=== PATIENT | male | born 1970 | race Caucasian/White ===

== ENCOUNTER 2016-03-01 14:28 | Emergency (ER) | payer OTHER, SELFPAY ==
[~2016-03-01 14:28] MED LIST: IBUP600T OR; LISI10TA2 PO; LISI10TA4 OR; OMEP40CA2 PO; PROP20TA2 OR; VICO5TAB OR
[2016-03-01] MEDS ORDERED: ONDANSETRON 4 MG ORAL DISINTEGRATING TAB (S0181) As Ordered ONE (15:34)
[2016-03-01 16:48] LABS: CALCIUM LEVEL 8.8 MG/DL (8.5-10.1); CREATININE FOR GFR 1.52 MG/DL (0.70-1.30); GLOMERULAR FILTRATION RATE 52.8 (>60); POTASSIUM SERUM 3.9 MEQ/L (3.5-5.1)
--- NOTE | 2016-03-01 17:12 | REP ---
Clinical: Left lower extremity pain and swelling . Technique: Noble scale and color Doppler evaluation using linear high frequency transducer. Findings: Ultrasound examination of the left lower extremity deep venous structures from the common femoral vein to the popliteal vein demonstrates normal compressibility flow and wave patterns in response to respiration and augmentation. There is no evidence for deep venous thrombosis. 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 Impression: No evidence for deep venous thrombosis. Marx's cyst. Signed by James Duenas MD 03/01/2016 05:04 P
--- NOTE | 2016-03-01 18:28 | EDDOCDS ---
Physician Documentation [facility] Name: Jack Copeland Age: 46 yrs Sex: Male : 1970 Arrival Date: 03/01/2016 Time: 14:28 Bed 8 Private MD: Yang Shaffer M.D. Disposition: 03/01/16 18:11 Discharged to Home/Self Care. Impression: Nausea and vomiting. - Condition is Stable. - Discharge Instructions: Nausea and Vomiting. - Medication Reconciliation, Local Pharmacy Hours form. - Follow up: Yang Shaffer; When: Call to arrange an appointment; Reason: Recheck today's complaints. - Problem is new. - Symptoms have improved. - Notes: You were evaluated in the emergency department for nausea and vomiting. You were given some Zofran in the ED which appeared to alleviate your symptoms. Your blood pressure did drop a little while in the ED so some fluids were given via your IV. Your blood pressure did improve somewhat. Fluids were administered by mouth. Please follow-up with Yang Shaffer at your soonest convenience. Historical: - Allergies: Bactrim (Hives, Rash, Upset stomach); - Home Meds: 1. lisinopril-hydrochlorothiazide 20-12.5 mg oral tab 1 tab twice a day 2. Cipro 500 mg Oral tab 1 tab every 12 hours just started today for prostaitis - PMHx: Hypertension; - PSHx: Appendectomy; right ankle; - Social history: Smoking status: Patient states former smoker of tobacco. No barriers to communication noted, The patient speaks fluent Hungarian, Speaks appropriately for age. - Family history: Not pertinent. - : The pt / caregiver states he / she is not on anticoagulants. Home medication list is obtained from the patient. - Exposure Risk Screening:: None identified. Vital Signs: 03/01 14:29 BP 133 / 87; Pulse 123; Resp 18 S; Pulse Ox 98% on R/A; Weight 149.69 kg / 330.01 lbs dd6 (R); Height 6 ft. 5 in. (195.58 cm) (R); 16:11 BP 92 / 54 (auto/); po 16:12 Pulse 80 MON; Resp 18; Temp 97.5(O); Pulse Ox 93% on R/A; Pain 0/10; po 16:29 BP 102 / 57 (auto/); po 16:29 Pulse 84 MON; Resp 14; Pulse Ox 96% on R/A; Pain 0/10; po 17:29 BP 118 / 75 (auto/); po 17:29 Pulse 82 MON; Resp 16; Temp 97.9(O); Pulse Ox 92% on R/A; Pain 0/10; po 18:18 BP 121 / 78; Pulse 78 MON; Resp 14; Temp 98.1(O); Pulse Ox 92% on R/A; Pain 0/10; po 14:29 Body Mass Index 39.13 (149.69 kg, 195.58 cm) dd6 MDM: 15:29 Ondansetron ODT Oral Disintegrating Tablet 4 mg PO once ordered. jo4 15:59 US Lower Extremity R/O DVT Ordered. EDMS 16:13 NS 0.9% 1000 ml IV at bolus once ordered. jo4 16:13 IV Saline Lock ordered. jo4 16:14 BMP Ordered. EDMS 17:18 BMP Reviewed. sd1 17:23 Financial registration complete. zo 17:[facility] Agreement was scanned into [employer] and attached to record. zo 17:33 Fluid Challenge ordered. jo4 Administered Medications: 15:36 Drug: Ondansetron ODT 4 mg [ondansetron 4 mg disintegrating tablet (1 tabs)] Route: PO; po 16:23 Follow up: Response: Nausea is resolved po 16:22 Drug: NS 0.9% 1000 ml [sodium chloride 0.9 % intravenous solution] Route: IV; Rate: rs3 bolus; Site: right antecubital; 17:50 Follow up: IV Status: Completed infusion; IV Intake: 1000ml po Signatures: Dispatcher [employer] EDMS Eliza Amaro MD MD sd1 Germain Amaral RN RN Fran Hemphill RN RN Nika Vasquez Jane, DO DO jo4 Cherry Hess RN rs3 The chart was reviewed and I authenticate all verbal orders and agree with the evaluation and treatment provided.Attachments: 17:25 [facility] Payment Agreement zo MTDD
--- NOTE | 2016-03-01 18:28 | EDDOCDS ---
Nurse's Notes [facility] Name: Jack Copeland Age: 46 yrs Sex: Male : 1970 Arrival Date: 03/01/2016 Time: 14:28 Bed 8 Private MD: Yang Shaffer M.D. Diagnosis: Nausea and vomiting Presentation: 03/01 14:37 Presenting complaint: Patient states: took a Bactrim DS by accident about 3 hrs ago - bcj has been having increasing diff breath - chest feels tight/throat feels full. + n/v several times since incident. denies itching. tongue / face not swollen. + light red rash on trunk. Onset: The symptoms/episode began/occurred acutely, 3 hour(s) ago. The patient has a history of a previous allergic reaction. The previous reaction involved shortness of breath. Anaphylaxis evaluation, the patient reports or I have noted the following symptoms which indicate a significant risk of anaphylaxis: lump in the throat which may suggest laryngeal edema shortness of breath. Adult Sepsis Screening: The patient does not have new or worsening altered mentation. Patient's respiratory rate is less than 22. Systolic blood pressure is greater than 100. Patient has a qSOFA score of 0- Negative Sepsis Screen. Suicide/Homicide risk assessment- the patient denies having any suicidal and/or homicidal ideations and does not present with any other emotional, behavioral or mental health complaints. Status: Patient is not a customer service teller or dependent. Transition of care: patient was not received from another setting of care. 14:37 Acuity: JOSEPHINE Level 3 [facility] 14:37 Method Of Arrival: Walkin/Carried/[facility] Triage Assessment: 14:42 General: Appears uncomfortable, Behavior is cooperative. Pain: Location: chest Pain [facility] currently is 4 out of 10 on a pain scale. HIV screening NA for this visit Offered previously. Respiratory: Airway is patent Respiratory effort is even, unlabored, Respiratory pattern is regular, Breath sounds are clear bilaterally. Reports shortness of breath. Derm: Skin is pink, warm & dry. Historical: - Allergies: Bactrim (Hives, Rash, Upset stomach); - Home Meds: 1. lisinopril-hydrochlorothiazide 20-12.5 mg oral tab 1 tab twice a day 2. Cipro 500 mg Oral tab 1 tab every 12 hours just started today for prostaitis - PMHx: Hypertension; - PSHx: Appendectomy; right ankle; - Social history: Smoking status: Patient states former smoker of tobacco. No barriers to communication noted, The patient speaks fluent Kinyarwanda, Speaks appropriately for age. - Family history: Not pertinent. - : The pt / caregiver states he / she is not on anticoagulants. Home medication list is obtained from the patient. - Exposure Risk Screening:: None identified. Screenin:13 Screening information is obtained from the patient. Fall risk: No risks identified. po Assistance ADL's: requires no assistance with activities of daily living. Abuse/DV Screen: The patient / caregiver reports he/she is: not in a situation that causes fear, pain or injury. Nutritional screening: No deficits noted. Advance Directives: Currently, there is no health care proxy. There is no active DNR order. Further advance directive information is declined. home support is adequate. Assessment: 15:13 General: Appears in no apparent distress, comfortable, Behavior is appropriate for age, po cooperative, pleasant. Pain: Denies pain. Neurological: Level of Consciousness is awake, alert, Oriented to person, place, time. EENT: Reports feeling of lump in throat. Respiratory: Airway is patent Respiratory effort is even, unlabored, Breath sounds are clear bilaterally. GI: Abdomen is non- distended obese, Bowel sounds present X 4 quads. Abd is soft and non tender X 4 quads. Reports diarrhea, nausea, vomiting, since 1 hour ago. Derm: Skin is intact, is healthy with good turgor, Skin is pink, warm & dry. no rash or hives noted. 16:23 Adult Sepsis Screening: The patient does not have new or worsening altered mentation. po Patient's respiratory rate is less than 22. Systolic blood pressure is less than or equal to 100 (1 point). Patient has a qSOFA score of 1- Negative Sepsis Screen. General: Appears in no apparent distress, comfortable, Behavior is appropriate for age, cooperative, pleasant. General: Appears in no apparent distress, comfortable, Behavior is appropriate for age, cooperative. Pain: Denies pain. Neurological: Level of Consciousness is awake, alert, Oriented to person, place, time. Respiratory: Airway is patent Respiratory effort is even, unlabored. GI: Reports diarrhea, Denies nausea. 16:24 Derm: Skin is intact, is healthy with good turgor, Skin is pink, warm & dry. po 17:30 General: Appears in no apparent distress, comfortable, Behavior is appropriate for age, po cooperative, pleasant. Pain: Denies pain. Neurological: Level of Consciousness is awake, alert, Oriented to person, place, time. Respiratory: Airway is patent Respiratory effort is even, unlabored, Breath sounds are clear bilaterally. GI: Denies nausea. Derm: Skin is pink, warm & dry. Musculoskeletal: states left calf pain only when turning over and laying on left side at night. Denies any pain with ambulation. 18:01 General: tolerated po fluids, denies nausea. po 18:25 General: Appears in no apparent distress, comfortable, Behavior is appropriate for age, po cooperative, pleasant. Pain: Denies pain. Neurological: No deficits noted. EENT: Oral mucosa is moist. Respiratory: No deficits noted. GI: Abdomen is non- distended obese, Bowel sounds present X 4 quads. Abd is soft and non tender X 4 quads. Denies nausea. Derm: Skin is intact, is healthy with good turgor, Skin is pink, warm & dry. Vital Signs: 14:29 BP 133 / 87; Pulse 123; Resp 18 S; Pulse Ox 98% on R/A; Weight 149.69 kg (R); Height 6 dd6 ft. 5 in. (195.58 cm) (R); 16:11 BP 92 / 54 (auto/); po 16:12 Pulse 80 MON; Resp 18; Temp 97.5(O); Pulse Ox 93% on R/A; Pain 0/10; po 16:29 BP 102 / 57 (auto/); po 16:29 Pulse 84 MON; Resp 14; Pulse Ox 96% on R/A; Pain 0/10; po 17:29 BP 118 / 75 (auto/); po 17:29 Pulse 82 MON; Resp 16; Temp 97.9(O); Pulse Ox 92% on R/A; Pain 0/10; po 18:18 BP 121 / 78; Pulse 78 MON; Resp 14; Temp 98.1(O); Pulse Ox 92% on R/A; Pain 0/10; po 14:29 Body Mass Index 39.13 (149.69 kg, 195.58 cm) dd6 Vitals: 14:29 Log In Time: March 01, 2016 at 14:27. dd6 ED Course: 14:29 Patient visited by Lorne Cannon, BRITTANIE. dd6 14:29 Yang Shaffer is Private Physician. dd6 14:29 Patient moved to Waiting dd6 14:31 Fran Del Rosario,DOUG is Primary Nurse. dd6 14:31 Patient moved to 8 dd6 14:34 Leeanna Morris DO is PHCP. jo4 14:35 Eliza Amaro MD is Attending Physician. jo4 14:40 Triage Initiated bcj 14:43 Patient visited by Germain Amaral RN. bcj 15:13 The patient / caregiver is instructed regarding the plan of care and ED course. Placed po in gown. Bed in low position. Call light in reach. 15:16 Patient visited by Fran Del Rosario RN. po 15:36 Patient visited by Eliza Amaro MD. sd1 16:23 BMP Sent. po 16:23 Inserted saline lock: 20 gauge in right antecubital area. po 16:25 Patient visited by Fran Del Rosario RN. po 16:35 Patient moved to Ultrasound hgl 17:01 Patient moved to 8 hgl 17:25 [facility] Payment Agreement was scanned into [employer] and attached to record. zo 17:28 US Lower Extremity R/O DVT Returned. EDMS 17:32 Patient visited by Fran Del Rosario,DOUG. po 18:11 Yang Shaffer is Referral Physician. jo4 18:18 Discontinued IV lock intact, bleeding controlled, pressure dressing applied, No po redness/swelling at site. No procedures done that require assistance. 18:27 Patient visited by Fran Del Rosario RN. po Administered Medications: 15:36 Drug: Ondansetron ODT 4 mg [ondansetron 4 mg disintegrating tablet (1 tabs)] Route: PO; po 16:23 Follow up: Response: Nausea is resolved po 16:22 Drug: NS 0.9% 1000 ml [sodium chloride 0.9 % intravenous solution] Route: IV; Rate: rs3 bolus; Site: right antecubital; 17:50 Follow up: IV Status: Completed infusion; IV Intake: 1000ml po Intake: 17:50 IV: 1000.00ml; Total: 1000.00ml. po Order Results: Lab Order: VALERIA HERNANDEZ 03/01/16 16:19 Test: GLUCOSE, FASTING; Value: 93; Range: 70-105; Units: MG/DL; Status: F Test: BLOOD UREA NITROGEN; Value: 18; Range: 7-18; Units: MG/DL; Status: F Test: CREATININE FOR GFR; Value: 1.52; Range: 0.70-1.30; Abnormal: Above high normal; Units: MG/DL; Status: F Test: GLOMERULAR FILTRATION RATE; Value: 52.8; Range: >60; Abnormal: Below low normal; Status: F Test: SODIUM LEVEL; Value: 142; Range: 136-145; Units: MEQ/L; Status: F Test: POTASSIUM SERUM; Value: 3.9; Range: 3.5-5.1; Units: MEQ/L; Status: F Test: CHLORIDE LEVEL; Value: 106; Range: 98-107; Units: MEQ/L; Status: F Test: CARBON DIOXIDE LEVEL; Value: 30; Range: 21-32; Units: MEQ/L; Status: F Test: ANION GAP; Value: 6; Range: 8-16; Abnormal: Below low normal; Units: MEQ/L; Status: F Test: CALCIUM LEVEL; Value: 8.8; Range: 8.5-10.1; Units: MG/DL; Status: F Test Note: ; Units are mL/min/1.73 m2 Chronic Kidney Disease Staging per NKF: Stage I & II GFR >=60 Normal to Mildly Decreased Stage III GFR 30-59 Moderately Decreased Stage IV GFR 15-29 Severely Decreased Stage V GFR <15 Very Little GFR Left ESRD GFR <15 on EXTRUSION TECHNICIAN Radiology Order: US Lower Extremity R/O DVT Test: US Lower Extremity R/O DVT REASON FOR EXAMINATION: pain; Clinical: Left lower extremity pain and swelling .; ; Technique: Noble scale and color Doppler evaluation using linear high frequency; transducer.; ; Findings:; Ultrasound examination of the left lower extremity deep venous structures from; the common femoral vein to the popliteal vein demonstrates normal compressibility; flow and wave patterns in response to respiration and augmentation. There is no; evidence for deep venous thrombosis. 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 jo4 18:27 Discharge Assessment: patient administered narcotics - no. The following High Risk po Discharge criteria are identified: None. Discharged to home ambulatory. Condition: improved. Discharge instructions given to patient, Instructed on discharge instructions, follow up and referral plans. Demonstrated understanding of instructions, Pt was receptive of discharge instructions/ teaching. Ultrasound Study completed. Property sent home with patient. 18:27 Patient left the ED. po Signatures: Dispatcher [employer] EDMS Eliza Amaro MD MD sd1 Germain Amaral, RN RN Fran HemphillRN RN po Mihai, Lorne Liraino, MIRROR MACHINE FEEDER MIRROR MACHINE FEEDER dd6 Cherry Hess RN RN rs3 Ly, Arturo hgl Leeanna Morris DO DO jo4 Corrections: (The following items were deleted from the chart) 16:24 15:13 GI: Reports nausea, vomiting, since 1 hour ago po po 17:59 16:12 Pulse 80bpm; MonitorResp 18bpm; Pulse Ox 93% RA; Pain 0/10; po po 17:59 17:29 Pulse 82bpm; MonitorResp 16bpm; Pulse Ox 92% RA; Pain 0/10; po po 18:26 15:13 GI: Reports diarrhea, nausea, vomiting, since 1 hour ago po po MTDD
--- NOTE | 2016-03-03 19:28 | EDDOCDS ---
Nurse's Notes [facility] Name: Jack Copeland Age: 46 yrs Sex: Male : 1970 Arrival Date: 03/01/2016 Time: 14:28 Bed 8 Private MD: Yang Shaffer M.D. Diagnosis: Nausea and vomiting Presentation: 03/01 14:37 Presenting complaint: Patient states: took a Bactrim DS by accident about 3 hrs ago - bcj has been having increasing diff breath - chest feels tight/throat feels full. + n/v several times since incident. denies itching. tongue / face not swollen. + light red rash on trunk. Onset: The symptoms/episode began/occurred acutely, 3 hour(s) ago. The patient has a history of a previous allergic reaction. The previous reaction involved shortness of breath. Anaphylaxis evaluation, the patient reports or I have noted the following symptoms which indicate a significant risk of anaphylaxis: lump in the throat which may suggest laryngeal edema shortness of breath. Adult Sepsis Screening: The patient does not have new or worsening altered mentation. Patient's respiratory rate is less than 22. Systolic blood pressure is greater than 100. Patient has a qSOFA score of 0- Negative Sepsis Screen. Suicide/Homicide risk assessment- the patient denies having any suicidal and/or homicidal ideations and does not present with any other emotional, behavioral or mental health complaints. Status: Patient is not a director outpatient services or dependent. Transition of care: patient was not received from another setting of care. 14:37 Acuity: JOSEPHINE Level 3 [facility] 14:37 Method Of Arrival: Walkin/Carried/Asstd [facility] Triage Assessment: 14:42 General: Appears uncomfortable, Behavior is cooperative. Pain: Location: chest Pain [facility] currently is 4 out of 10 on a pain scale. HIV screening NA for this visit Offered previously. Respiratory: Airway is patent Respiratory effort is even, unlabored, Respiratory pattern is regular, Breath sounds are clear bilaterally. Reports shortness of breath. Derm: Skin is pink, warm & dry. Historical: - Allergies: Bactrim (Hives, Rash, Upset stomach); - Home Meds: 1. lisinopril-hydrochlorothiazide 20-12.5 mg oral tab 1 tab twice a day 2. Cipro 500 mg Oral tab 1 tab every 12 hours just started today for prostaitis - PMHx: Hypertension; - PSHx: Appendectomy; right ankle; - Social history: Smoking status: Patient states former smoker of tobacco. No barriers to communication noted, The patient speaks fluent Tajik, Speaks appropriately for age. - Family history: Not pertinent. - : The pt / caregiver states he / she is not on anticoagulants. Home medication list is obtained from the patient. - Exposure Risk Screening:: None identified. Screenin:13 Screening information is obtained from the patient. Fall risk: No risks identified. po Assistance ADL's: requires no assistance with activities of daily living. Abuse/DV Screen: The patient / caregiver reports he/she is: not in a situation that causes fear, pain or injury. Nutritional screening: No deficits noted. Advance Directives: Currently, there is no health care proxy. There is no active DNR order. Further advance directive information is declined. home support is adequate. Assessment: 15:13 General: Appears in no apparent distress, comfortable, Behavior is appropriate for age, po cooperative, pleasant. Pain: Denies pain. Neurological: Level of Consciousness is awake, alert, Oriented to person, place, time. EENT: Reports feeling of lump in throat. Respiratory: Airway is patent Respiratory effort is even, unlabored, Breath sounds are clear bilaterally. GI: Abdomen is non- distended obese, Bowel sounds present X 4 quads. Abd is soft and non tender X 4 quads. Reports diarrhea, nausea, vomiting, since 1 hour ago. Derm: Skin is intact, is healthy with good turgor, Skin is pink, warm & dry. no rash or hives noted. 16:23 Adult Sepsis Screening: The patient does not have new or worsening altered mentation. po Patient's respiratory rate is less than 22. Systolic blood pressure is less than or equal to 100 (1 point). Patient has a qSOFA score of 1- Negative Sepsis Screen. General: Appears in no apparent distress, comfortable, Behavior is appropriate for age, cooperative, pleasant. General: Appears in no apparent distress, comfortable, Behavior is appropriate for age, cooperative. Pain: Denies pain. Neurological: Level of Consciousness is awake, alert, Oriented to person, place, time. Respiratory: Airway is patent Respiratory effort is even, unlabored. GI: Reports diarrhea, Denies nausea. 16:24 Derm: Skin is intact, is healthy with good turgor, Skin is pink, warm & dry. po 17:30 General: Appears in no apparent distress, comfortable, Behavior is appropriate for age, po cooperative, pleasant. Pain: Denies pain. Neurological: Level of Consciousness is awake, alert, Oriented to person, place, time. Respiratory: Airway is patent Respiratory effort is even, unlabored, Breath sounds are clear bilaterally. GI: Denies nausea. Derm: Skin is pink, warm & dry. Musculoskeletal: states left calf pain only when turning over and laying on left side at night. Denies any pain with ambulation. 18:01 General: tolerated po fluids, denies nausea. po 18:25 General: Appears in no apparent distress, comfortable, Behavior is appropriate for age, po cooperative, pleasant. Pain: Denies pain. Neurological: No deficits noted. EENT: Oral mucosa is moist. Respiratory: No deficits noted. GI: Abdomen is non- distended obese, Bowel sounds present X 4 quads. Abd is soft and non tender X 4 quads. Denies nausea. Derm: Skin is intact, is healthy with good turgor, Skin is pink, warm & dry. Vital Signs: 14:29 BP 133 / 87; Pulse 123; Resp 18 S; Pulse Ox 98% on R/A; Weight 149.69 kg (R); Height 6 dd6 ft. 5 in. (195.58 cm) (R); 16:11 BP 92 / 54 (auto/); po 16:12 Pulse 80 MON; Resp 18; Temp 97.5(O); Pulse Ox 93% on R/A; Pain 0/10; po 16:29 BP 102 / 57 (auto/); po 16:29 Pulse 84 MON; Resp 14; Pulse Ox 96% on R/A; Pain 0/10; po 17:29 BP 118 / 75 (auto/); po 17:29 Pulse 82 MON; Resp 16; Temp 97.9(O); Pulse Ox 92% on R/A; Pain 0/10; po 18:18 BP 121 / 78; Pulse 78 MON; Resp 14; Temp 98.1(O); Pulse Ox 92% on R/A; Pain 0/10; po 14:29 Body Mass Index 39.13 (149.69 kg, 195.58 cm) dd6 Vitals: 14:29 Log In Time: March 01, 2016 at 14:27. dd6 ED Course: 14:29 Patient visited by Lorne Cannon, BRITTANIE. dd6 14:29 Yang Shaffer is Private Physician. dd6 14:29 Patient moved to Waiting dd6 14:31 Fran Del Rosario,DOUG is Primary Nurse. dd6 14:31 Patient moved to 8 dd6 14:34 Leeanna Morris DO is PHCP. jo4 14:35 Eliza Amaro MD is Attending Physician. jo4 14:40 Triage Initiated bcj 14:43 Patient visited by Germain Amaral RN. bcj 15:13 The patient / caregiver is instructed regarding the plan of care and ED course. Placed po in gown. Bed in low position. Call light in reach. 15:16 Patient visited by Fran Del Rosario RN. po 15:36 Patient visited by Eliza Amaro MD. sd1 16:23 BMP Sent. po 16:23 Inserted saline lock: 20 gauge in right antecubital area. po 16:25 Patient visited by Fran Del Rosario RN. po 16:35 Patient moved to Ultrasound hgl 17:01 Patient moved to 8 hgl 17:25 [facility] Payment Agreement was scanned into [email or web address] and attached to record. zo 17:28 US Lower Extremity R/O DVT Returned. EDMS 17:32 Patient visited by Fran Del Rosario RN. po 18:11 Yang Shaffer is Referral Physician. jo4 18:18 Discontinued IV lock intact, bleeding controlled, pressure dressing applied, No po redness/swelling at site. No procedures done that require assistance. 18:27 Patient visited by Fran Del Rosario RN. po 21:28 T-Sheet-- Draft Copy was scanned into [email or web address] and attached to record. klr Administered Medications: 15:36 Drug: Ondansetron ODT 4 mg [ondansetron 4 mg disintegrating tablet (1 tabs)] Route: PO; po 16:23 Follow up: Response: Nausea is resolved po 16:22 Drug: NS 0.9% 1000 ml [sodium chloride 0.9 % intravenous solution] Route: IV; Rate: rs3 bolus; Site: right antecubital; 17:50 Follow up: IV Status: Completed infusion; IV Intake: 1000ml po Intake: 17:50 IV: 1000.00ml; Total: 1000.00ml. po Order Results: Lab Order: VALERIA HERNANDEZ 03/01/16 16:19 Test: GLUCOSE, FASTING; Value: 93; Range: 70-105; Units: MG/DL; Status: F Test: BLOOD UREA NITROGEN; Value: 18; Range: 7-18; Units: MG/DL; Status: F Test: CREATININE FOR GFR; Value: 1.52; Range: 0.70-1.30; Abnormal: Above high normal; Units: MG/DL; Status: F Test: GLOMERULAR FILTRATION RATE; Value: 52.8; Range: >60; Abnormal: Below low normal; Status: F Test: SODIUM LEVEL; Value: 142; Range: 136-145; Units: MEQ/L; Status: F Test: POTASSIUM SERUM; Value: 3.9; Range: 3.5-5.1; Units: MEQ/L; Status: F Test: CHLORIDE LEVEL; Value: 106; Range: 98-107; Units: MEQ/L; Status: F Test: CARBON DIOXIDE LEVEL; Value: 30; Range: 21-32; Units: MEQ/L; Status: F Test: ANION GAP; Value: 6; Range: 8-16; Abnormal: Below low normal; Units: MEQ/L; Status: F Test: CALCIUM LEVEL; Value: 8.8; Range: 8.5-10.1; Units: MG/DL; Status: F Test Note: ; Units are mL/min/1.73 m2 Chronic Kidney Disease Staging per NKF: Stage I & II GFR >=60 Normal to Mildly Decreased Stage III GFR 30-59 Moderately Decreased Stage IV GFR 15-29 Severely Decreased Stage V GFR <15 Very Little GFR Left ESRD GFR <15 on ANALYSIS ANALYST Radiology Order: US Lower Extremity R/O DVT Test: US Lower Extremity R/O DVT REASON FOR EXAMINATION: pain; Clinical: Left lower extremity pain and swelling .; ; Technique: Noble scale and color Doppler evaluation using linear high frequency; transducer.; ; Findings:; Ultrasound examination of the left lower extremity deep venous structures from; the common femoral vein to the popliteal vein demonstrates normal compressibility; flow and wave patterns in response to respiration and augmentation. There is no; evidence for deep venous thrombosis. 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 jo4 18:27 Discharge Assessment: patient administered narcotics - no. The following High Risk po Discharge criteria are identified: None. Discharged to home ambulatory. Condition: improved. Discharge instructions given to patient, Instructed on discharge instructions, follow up and referral plans. Demonstrated understanding of instructions, Pt was receptive of discharge instructions/ teaching. Ultrasound Study completed. Property sent home with patient. 18:27 Patient left the ED. po Signatures: Dispatcher [employer] EDMS Eliza Amaro MD MD sd1 Germain Amaral, RN RN Fran Hemphill RN RN po Dunmore, Lucynn zo Lorne Cannon, PODIATRY DOCTOR PODIATRY DOCTOR dd6 Cherry Hess,DOUG RN rs3 Ly, Arturo hgl Leeanna Morris DO DO jo4 Silvia Quinn Corrections: (The following items were deleted from the chart) 16:24 15:13 GI: Reports nausea, vomiting, since 1 hour ago po po 17:59 16:12 Pulse 80bpm; MonitorResp 18bpm; Pulse Ox 93% RA; Pain 0/10; po po 17:59 17:29 Pulse 82bpm; MonitorResp 16bpm; Pulse Ox 92% RA; Pain 0/10; po po 18:26 15:13 GI: Reports diarrhea, nausea, vomiting, since 1 hour ago po po Chart Complete MTDD
--- NOTE | 2016-03-03 19:28 | EDDOCDS ---
Physician Documentation [facility] Name: Jack Copeland Age: 46 yrs Sex: Male : 1970 Arrival Date: 03/01/2016 Time: 14:28 Bed 8 Private MD: Yang Shaffer M.D. Disposition: 03/01/16 18:11 Discharged to Home/Self Care. Impression: Nausea and vomiting. - Condition is Stable. - Discharge Instructions: Nausea and Vomiting. - Medication Reconciliation, Local Pharmacy Hours form. - Follow up: Yang Shaffer; When: Call to arrange an appointment; Reason: Recheck today's complaints. - Problem is new. - Symptoms have improved. - Notes: You were evaluated in the emergency department for nausea and vomiting. You were given some Zofran in the ED which appeared to alleviate your symptoms. Your blood pressure did drop a little while in the ED so some fluids were given via your IV. Your blood pressure did improve somewhat. Fluids were administered by mouth. Please follow-up with Yang Shaffer at your soonest convenience. Historical: - Allergies: Bactrim (Hives, Rash, Upset stomach); - Home Meds: 1. lisinopril-hydrochlorothiazide 20-12.5 mg oral tab 1 tab twice a day 2. Cipro 500 mg Oral tab 1 tab every 12 hours just started today for prostaitis - PMHx: Hypertension; - PSHx: Appendectomy; right ankle; - Social history: Smoking status: Patient states former smoker of tobacco. No barriers to communication noted, The patient speaks fluent Gibraltarian, Speaks appropriately for age. - Family history: Not pertinent. - : The pt / caregiver states he / she is not on anticoagulants. Home medication list is obtained from the patient. - Exposure Risk Screening:: None identified. Vital Signs: 03/01 14:29 BP 133 / 87; Pulse 123; Resp 18 S; Pulse Ox 98% on R/A; Weight 149.69 kg / 330.01 lbs dd6 (R); Height 6 ft. 5 in. (195.58 cm) (R); 16:11 BP 92 / 54 (auto/); po 16:12 Pulse 80 MON; Resp 18; Temp 97.5(O); Pulse Ox 93% on R/A; Pain 0/10; po 16:29 BP 102 / 57 (auto/); po 16:29 Pulse 84 MON; Resp 14; Pulse Ox 96% on R/A; Pain 0/10; po 17:29 BP 118 / 75 (auto/); po 17:29 Pulse 82 MON; Resp 16; Temp 97.9(O); Pulse Ox 92% on R/A; Pain 0/10; po 18:18 BP 121 / 78; Pulse 78 MON; Resp 14; Temp 98.1(O); Pulse Ox 92% on R/A; Pain 0/10; po 14:29 Body Mass Index 39.13 (149.69 kg, 195.58 cm) dd6 MDM: 15:29 Ondansetron ODT Oral Disintegrating Tablet 4 mg PO once ordered. jo4 15:59 US Lower Extremity R/O DVT Ordered. EDMS 16:13 NS 0.9% 1000 ml IV at bolus once ordered. jo4 16:13 IV Saline Lock ordered. jo4 16:14 BMP Ordered. EDMS 17:18 BMP Reviewed. sd1 17:23 Financial registration complete. zo 17:25 [facility] Payment Agreement was scanned into [employer] and attached to record. zo 17:33 Fluid Challenge ordered. jo4 21:28 T-Sheet-- Draft Copy was scanned into [employer] and attached to record. klr Administered Medications: 15:36 Drug: Ondansetron ODT 4 mg [ondansetron 4 mg disintegrating tablet (1 tabs)] Route: PO; po 16:23 Follow up: Response: Nausea is resolved po 16:22 Drug: NS 0.9% 1000 ml [sodium chloride 0.9 % intravenous solution] Route: IV; Rate: rs3 bolus; Site: right antecubital; 17:50 Follow up: IV Status: Completed infusion; IV Intake: 1000ml po Signatures: Dispatcher [employer] EDMS Eliza Amaro MD MD sd1 Germain Amaral RN RN bcj Otero, Pablo, RN RN po Olin, Zoeann zo Oosthuizen, Jane, DO DO jo4 Silvia Quinn Rosemary RN rs3 The chart was reviewed and I authenticate all verbal orders and agree with the evaluation and treatment provided.Attachments: 17:25 [facility] Payment Agreement zo 21:28 T-Sheet-- Draft Copy klr Chart Complete MTDD
--- NOTE | 2016-03-03 19:28 | EDDOCDS ---
Physician Documentation [facility] Name: Jack Copeland Age: 46 yrs Sex: Male : 1970 Arrival Date: 03/01/2016 Time: 14:28 Bed 8 Private MD: Yang Shaffer M.D. Disposition: 03/01/16 18:11 Discharged to Home/Self Care. Impression: Nausea and vomiting. - Condition is Stable. - Discharge Instructions: Nausea and Vomiting. - Medication Reconciliation, Local Pharmacy Hours form. - Follow up: Yang Shaffer; When: Call to arrange an appointment; Reason: Recheck today's complaints. - Problem is new. - Symptoms have improved. - Notes: You were evaluated in the emergency department for nausea and vomiting. You were given some Zofran in the ED which appeared to alleviate your symptoms. Your blood pressure did drop a little while in the ED so some fluids were given via your IV. Your blood pressure did improve somewhat. Fluids were administered by mouth. Please follow-up with Yang Shaffer at your soonest convenience. Historical: - Allergies: Bactrim (Hives, Rash, Upset stomach); - Home Meds: 1. lisinopril-hydrochlorothiazide 20-12.5 mg oral tab 1 tab twice a day 2. Cipro 500 mg Oral tab 1 tab every 12 hours just started today for prostaitis - PMHx: Hypertension; - PSHx: Appendectomy; right ankle; - Social history: Smoking status: Patient states former smoker of tobacco. No barriers to communication noted, The patient speaks fluent Welsh, Speaks appropriately for age. - Family history: Not pertinent. - : The pt / caregiver states he / she is not on anticoagulants. Home medication list is obtained from the patient. - Exposure Risk Screening:: None identified. Vital Signs: 03/01 14:29 BP 133 / 87; Pulse 123; Resp 18 S; Pulse Ox 98% on R/A; Weight 149.69 kg / 330.01 lbs dd6 (R); Height 6 ft. 5 in. (195.58 cm) (R); 16:11 BP 92 / 54 (auto/); po 16:12 Pulse 80 MON; Resp 18; Temp 97.5(O); Pulse Ox 93% on R/A; Pain 0/10; po 16:29 BP 102 / 57 (auto/); po 16:29 Pulse 84 MON; Resp 14; Pulse Ox 96% on R/A; Pain 0/10; po 17:29 BP 118 / 75 (auto/); po 17:29 Pulse 82 MON; Resp 16; Temp 97.9(O); Pulse Ox 92% on R/A; Pain 0/10; po 18:18 BP 121 / 78; Pulse 78 MON; Resp 14; Temp 98.1(O); Pulse Ox 92% on R/A; Pain 0/10; po 14:29 Body Mass Index 39.13 (149.69 kg, 195.58 cm) dd6 MDM: 15:29 Ondansetron ODT Oral Disintegrating Tablet 4 mg PO once ordered. jo4 15:59 US Lower Extremity R/O DVT Ordered. EDMS 16:13 NS 0.9% 1000 ml IV at bolus once ordered. jo4 16:13 IV Saline Lock ordered. jo4 16:14 BMP Ordered. EDMS 17:18 BMP Reviewed. sd1 17:23 Financial registration complete. zo 17:25 [facility] [place] [facility] Payment Agreement was scanned into [employer] and attached to record. zo 17:33 Fluid Challenge ordered. jo4 21:28 T-Sheet-- Draft Copy was scanned into [employer] and attached to record. klr Administered Medications: 15:36 Drug: Ondansetron ODT 4 mg [ondansetron 4 mg disintegrating tablet (1 tabs)] Route: PO; po 16:23 Follow up: Response: Nausea is resolved po 16:22 Drug: NS 0.9% 1000 ml [sodium chloride 0.9 % intravenous solution] Route: IV; Rate: rs3 bolus; Site: right antecubital; 17:50 Follow up: IV Status: Completed infusion; IV Intake: 1000ml po Signatures: Dispatcher [employer] EDMS Eliza Amaro MD MD sd1 Germain Amaral RN RN bcj Otero, Pablo, RN RN po Olin, Zoeann zo Oosthuizen, Jane, DO DO jo4 Silvia Quinn Rosemary RN rs3 The chart was reviewed and I authenticate all verbal orders and agree with the evaluation and treatment provided.Attachments: 17:25 [facility] Payment Agreement zo 21:28 T-Sheet-- Draft Copy klr Chart Complete MTDD
== END 2016-03-01 18:27 | disposition home or self-care (01) ==
LOC: M ED 14:28
DX: R11.2 Nausea with vomiting, unspecified (principal); I10 Essential (primary) hypertension; Z90.89 Acquired absence of other organs; Z87.891 Personal history of nicotine dependence; Z79.899 Other long term (current) drug therapy; Z88.1 Allergy status to other antibiotic agents

== ENCOUNTER → 2016-07-15 | Outpatient (CLI) | payer SELFPAY ==
[2016-07-15 20:12] LABS: ALBUMIN 3.7 GM/DL (3.2-5.2); ANION GAP 8 MEQ/L (8-16); BLOOD UREA NITROGEN 12 MG/DL (7-18); CALCIUM LEVEL 8.5 MG/DL (8.5-10.1); CARBON DIOXIDE LEVEL 29 MEQ/L (21-32); CHLORIDE LEVEL 102 MEQ/L (98-107); CREATININE FOR GFR 0.84 MG/DL (0.70-1.30); FREE T4 1.07 NG/DL (0.76-1.46); GLOMERULAR FILTRATION RATE > 60.0 (>60); GLUCOSE, FASTING 108 MG/DL (70-105); PHOSPHORUS LEVEL 2.7 MG/DL (2.5-4.9); POTASSIUM SERUM 3.8 MEQ/L (3.5-5.1); SODIUM LEVEL 139 MEQ/L (136-145)
== END ==
LOC: M WUC 15:42
PROVIDERS: ATTEND Physician Assistant
DX: I10 Essential (primary) hypertension (principal)

== ENCOUNTER → 2017-01-02 | Outpatient (REF) | payer SELFPAY ==
[~2017-01-02] MED LIST changes: +ASPI81TA18 PO; +LISI20TA PO
== END ==
LOC: M LAB REF 16:26
PROVIDERS: ATTEND Family Medicine
DX: R30.0 Dysuria (principal)

== ENCOUNTER → 2017-02-20 | Outpatient (REF) | payer OTHER, SELFPAY ==
[2017-02-20 12:56] LABS: HIV 1&2 SCREEN CENTAUR NEGATIVE (NEGATIVE)
[2017-02-20 14:20] LABS: CHLAMYDIA DNA AMPLIFICATION NEGATIVE (NEGATIVE); GC DNA AMPLIFICATION NEGATIVE (NEGATIVE)
== END ==
LOC: M LAB REF 11:42
DX: R30.0 Dysuria (principal); R21 Rash and other nonspecific skin eruption
CPT/HCPCS: 86780

== ENCOUNTER → 2017-03-02 | Outpatient (REF) | payer SELFPAY, OTHER ==
[2017-03-02 13:37] LABS: APPEARANCE, URINE CLEAR (CLEAR); BACTERIA, URINE AUTO NEGATIVE (NEGATIVE); BILIRUBIN, URINE AUTO NEGATIVE (NEGATIVE); BLOOD, URINE BLOOD NEGATIVE (NEGATIVE); COLOR, URINE YELLOW (YELLOW); GLUCOSE, URINE (UA) AUTO NEGATIVE (NEGATIVE); KETONE, URINE AUTO NEGATIVE (NEGATIVE); LEUKOCYTE ESTERASE, URINE AUTO NEGATIVE (NEGATIVE); MUCUS, URINE SMALL (NEGATIVE); NITRITE, URINE AUTO NEGATIVE (NEGATIVE); PROTEIN, URINE AUTO NEGATIVE (NEGATIVE); RBC, URINE AUTO 0 /HPF (0-3); SPECIFIC GRAVITY URINE AUTO 1.021 (1.002-1.035); SQUAMOUS EPITHELIAL CELL UR AU 0 /HPF (0-6); UROBILINOGEN, URINE AUTO 0.2 mg/dL (0.0-2.0); WBC, URINE AUTO 0 /HPF (0-3)
== END ==
LOC: M SMT 13:04
DX: N41.9 Inflammatory disease of prostate, unspecified (principal)

== ENCOUNTER → 2017-04-28 | Outpatient (REF) | payer SELFPAY ==
[2017-05-01 00:06] LABS: TESTOSTERONE FREE (DIRECT) 25.8 pg/mL (6.8-21.5)
== END ==
LOC: M LAB REF 17:17
DX: R68.82 Decreased libido (principal)
CPT/HCPCS: 84403

== ENCOUNTER → 2017-06-15 | Outpatient (CLI) | payer SELFPAY | LOC: M SMT 07:51 | DX: R39.9 Unspecified symptoms and signs involving the genitourinary system (principal) ==

== ENCOUNTER → 2017-07-15 | Outpatient (REF) | payer SELFPAY ==
[2017-07-16 00:16] LABS: RHEUMATOID FACTOR QUANT < 10.0 IU/ML (<15.0)
[2017-07-16 00:17] LABS: C REACTIVE PROTEIN QUANTITATIV 0.33 MG/DL (0.00-0.30)
[2017-07-17 14:17] LABS: ANTINUCLEAR ANTIBODIES DIRECT Negative (Negative)
== END ==
LOC: M LAB REF 12:35
DX: M25.50 Pain in unspecified joint (principal)

== ENCOUNTER → 2017-07-20 | Outpatient (REF) | payer SELFPAY ==
[2017-07-22 09:22] LABS: HIV 1&2 SCREEN CENTAUR NEGATIVE (NEGATIVE)
== END ==
LOC: M LAB REF 17:53
DX: Z72.89 Other problems related to lifestyle (principal)

== ENCOUNTER 2017-09-26 18:48 | Emergency (ER) | payer SELFPAY ==
[2017-09-26 21:27] LABS: ABG BASE EXCESS 0.6 (-2.0-2.0); ABG HCO3 24.8 MEQ/L (22.0-26.0); ABG O2 SATURATION 96.7 % (95.0-99.0); ABG PARTIAL PRESSURE CO2 38.5 mmHg (35.0-45.0); ABG PARTIAL PRESSURE O2 84.8 mmHg (75.0-100.0); ABG TOTAL CO2 25.9 MEQ/L (22.0-29.0); ABG pH (ARTERIAL) 7.426 UNITS (7.350-7.450)
[2017-09-26] MEDS: diphenhydrAMINE INJ 50MG/ML VIAL (J1200) IM (22:11)
[2017-09-26] MEDS: methylPREDNISolone INJ 125 MG/2 ML VIAL (J2930) IM (22:15)
== END 2017-09-26 23:48 | disposition home or self-care (01) ==
LOC: M ED 18:48
DX: R21 Rash and other nonspecific skin eruption (principal); I10 Essential (primary) hypertension
CPT/HCPCS: J1200

== ENCOUNTER → 2017-10-15 | Outpatient (REF) | payer OTHER, SELFPAY ==
[2017-10-16 14:29] LABS: CONTROL LINE HPYORI INT CTR LINE PRESENT; H PYLORI QUALITATIVE IgG NEGATIVE (NEGATIVE)
== END ==
LOC: M LAB REF 17:30
DX: R10.13 Epigastric pain (principal)
CPT/HCPCS: 86677

== ENCOUNTER → 2017-10-23 | Outpatient (REF) | payer OTHER, SELFPAY ==
[2017-10-27 00:07] LABS: ENDOMYSIAL ABY IgA Negative (Negative)
[2017-10-27 00:07] LABS: TISSUE TRANSGLUTAMINASE IgA <2 U/mL (0-3)
== END ==
LOC: M LAB REF 16:20
DX: R19.4 Change in bowel habit (principal)
CPT/HCPCS: 86255

== ENCOUNTER → 2017-10-29 | Outpatient (REF) | payer OTHER, SELFPAY ==
[2017-10-29 22:06] LABS: CHLAMYDIA DNA AMPLIFICATION NEGATIVE (NEGATIVE); GC DNA AMPLIFICATION NEGATIVE (NEGATIVE)
== END ==
LOC: M LAB REF 19:12
DX: N41.0 Acute prostatitis (principal)
CPT/HCPCS: 87086

== ENCOUNTER → 2017-12-22 | Outpatient (REF) | payer OTHER, SELFPAY ==
[2017-12-22 15:49] LABS: CHLAMYDIA DNA AMPLIFICATION NEGATIVE (NEGATIVE); GC DNA AMPLIFICATION NEGATIVE (NEGATIVE)
== END ==
LOC: M LAB REF 12:35
DX: Z20.2 Contact with and (suspected) exposure to infections with a predominantly sexual mode of transmission (principal)
CPT/HCPCS: 87086

== ENCOUNTER → 2018-01-23 | Outpatient (REF) | payer SELFPAY, OTHER ==
[2018-01-23 21:20] LABS: CHLAMYDIA DNA AMPLIFICATION NEGATIVE (NEGATIVE); GC DNA AMPLIFICATION NEGATIVE (NEGATIVE)
[2018-01-25 11:28] LABS: HIV 1&2 SCREEN CENTAUR NEGATIVE (NEGATIVE)
== END ==
LOC: M SFHCLERA 15:29
DX: R30.0 Dysuria (principal); Z20.9 Contact with and (suspected) exposure to unspecified communicable disease
CPT/HCPCS: 87086

== ENCOUNTER → 2018-01-26 | Outpatient (REF) | payer SELFPAY | LOC: M SMT 17:13 | DX: R30.0 Dysuria (principal) ==

== ENCOUNTER → 2018-02-13 | Outpatient (REF) | payer OTHER, SELFPAY ==
[~2018-02-13] MED LIST changes: -ASPI81TA18 PO; +ASPI81TA52 PO; +PRED20TA PO
[2018-02-13 22:19] LABS: CHLAMYDIA DNA AMPLIFICATION NEGATIVE (NEGATIVE); GC DNA AMPLIFICATION NEGATIVE (NEGATIVE)
== END ==
LOC: M SFHCLERA 14:47
PROVIDERS: ATTEND Nurse Practitioner Family
DX: R30.0 Dysuria (principal)

== ENCOUNTER → 2018-03-02 | Outpatient (REF) | payer OTHER | LOC: M SMT 13:10 | PROVIDERS: ATTEND Urology Pediatric Urology | DX: R30.0 Dysuria (principal) ==

== ENCOUNTER → 2018-03-11 | Outpatient (REF) | payer OTHER | LOC: M SMT 12:49 | PROVIDERS: ATTEND Urology Pediatric Urology | DX: Z00.00 Encounter for general adult medical examination without abnormal findings (principal) ==

== ENCOUNTER → 2018-03-15 | Outpatient (CLI) | payer OTHER ==
--- NOTE | 2018-03-15 18:26 | REP ---
Clinical: Left lateral ankle pain. Technique: AP, lateral, bilateral oblique views of the left ankle. Findings: Moderate arthritic changes are appreciated including cortical irregularity and subtle osteophyte formation. Ankle mortise is intact. There is no evidence for acute fracture or dislocation. Impression: Moderate arthritic changes. Electronically Signed by James Duenas MD 03/15/2018 06:18 P
== END ==
LOC: M WUC 18:02
PROVIDERS: ATTEND Physician Assistant
DX: M19.072 Primary osteoarthritis, left ankle and foot (principal); M25.572 Pain in left ankle and joints of left foot

== ENCOUNTER → 2018-03-15 | Outpatient (REF) | payer OTHER ==
[2018-03-15 23:03] LABS: CHLAMYDIA DNA AMPLIFICATION NEGATIVE (NEGATIVE); GC DNA AMPLIFICATION NEGATIVE (NEGATIVE)
== END ==
LOC: M LAB REF 19:30
PROVIDERS: ATTEND Physician Assistant
DX: N41.0 Acute prostatitis (principal)

== ENCOUNTER → 2018-03-16 | Outpatient (REF) | payer OTHER | LOC: M SMT 17:43 | PROVIDERS: ATTEND Urology Pediatric Urology | DX: R82.79 Other abnormal findings on microbiological examination of urine (principal) ==

== ENCOUNTER → 2018-03-16 | Outpatient (REF) | payer OTHER ==
[2018-03-17 14:53] LABS: PSA TOTAL 0.7 ng/mL (0.0-4.0)
== END ==
LOC: M LAB REF 12:22
PROVIDERS: ATTEND Family Medicine
DX: R30.0 Dysuria (principal)

== ENCOUNTER → 2018-04-05 | Outpatient (CLI) | payer OTHER ==
[2018-04-05 17:43] LABS: BASO # 0.1 10^3/uL (0.0-0.2); BASO % 0.7 % (0.0-1.0); EOS # 0.1 10^3/uL (0.0-0.50); EOS % 0.6 % (0.0-3.0); HEMATOCRIT 53.2 % (42.0-52.0); HEMOGLOBIN 17.5 g/dl (13.5-17.5); LYMPH # 1.9 10^3/uL (1.5-4.5); LYMPH % 22.6 % (24.0-44.0); MEAN CORPUSCULAR HEMOGLOBIN 30.4 pg (27.0-33.0); MEAN CORPUSCULAR HGB CONC 32.9 g/dl (32.0-36.5); MEAN CORPUSCULAR VOLUME 92.5 fl (80.0-96.0); MONO # 0.7 10^3/uL (0.0-0.8); MONO % 8.2 % (0.0-5.0); NEUTROPHILS # 5.6 10^3/uL (1.8-7.7); NEUTROPHILS % 67.3 % (36.0-66.0); PLATELET COUNT, AUTOMATED 189 10^3/uL (150-450); RED BLOOD COUNT 5.75 10^6/uL (4.30-6.10); WHITE BLOOD COUNT 8.4 10^3/uL (4.0-10.0)
[2018-04-05 17:56] LABS: ALBUMIN 4.3 GM/DL (3.2-5.2); ALT/SGPT 19 U/L (12-78); BILIRUBIN,TOTAL 0.7 MG/DL (0.2-1.0); BLOOD UREA NITROGEN 17 MG/DL (7-18); CALCIUM LEVEL 9.1 MG/DL (8.5-10.1); CARBON DIOXIDE LEVEL 30 MEQ/L (21-32); CHLORIDE LEVEL 103 MEQ/L (98-107); CHOLESTEROL LEVEL 218 MG/DL (<200); CHOLESTEROL RISK RATIO 5.069 (<5); CREATININE FOR GFR 0.92 MG/DL (0.70-1.30); GLOMERULAR FILTRATION RATE > 60.0 (>60); GLUCOSE, FASTING 90 MG/DL (70-100); HDL CHOLESTEROL 43 MG/DL (>40); LDL CHOLESTEROL 131 MG/DL (<100); NON-HDL-C 175 MG/DL; POTASSIUM SERUM 4.1 MEQ/L (3.5-5.1); SODIUM LEVEL 141 MEQ/L (136-145); THYROID STIMULATING HORMONE 0.578 uIU/ML (0.358-3.740); TOTAL PROTEIN 7.4 GM/DL (6.4-8.2); TRIGLYCERIDES LEVEL 222 MG/DL (<150)
[2018-04-05 18:39] LABS: HIV 1&2 SCREEN CENTAUR NEGATIVE (NEGATIVE)
[2018-04-05 20:34] LABS: CHLAMYDIA DNA AMPLIFICATION NEGATIVE (NEGATIVE); GC DNA AMPLIFICATION NEGATIVE (NEGATIVE)
[2018-04-07 09:57] LABS: HEPATITIS B SURFACE ANTIGEN NEGATIVE (NEGATIVE)
[2018-04-07 10:25] LABS: HEPATITIS B CORE ANTIBODY IGM NEGATIVE (NEGATIVE); HEPATITIS C VIRUS ABY INDEX < 0.0 INDEX (<0.8)
[2018-04-07 10:27] LABS: HEPATITIS A ANTIBODY IGM NEGATIVE (NEGATIVE)
[2018-04-08 15:05] LABS: HSV TYPE I IgM AB <1:10 titer (<1:10); HSV TYPE II IgM ABY <1:10 titer (<1:10)
== END ==
LOC: M SMT 13:07
PROVIDERS: ATTEND Physician Assistant
DX: Z11.3 Encounter for screening for infections with a predominantly sexual mode of transmission (principal); Z13.220 Encounter for screening for lipoid disorders; Z13.29 Encounter for screening for other suspected endocrine disorder; Z13.0 Encounter for screening for diseases of the blood and blood-forming organs and certain disorders involving the immune mechanism

== ENCOUNTER → 2018-04-15 | Outpatient (CLI) | payer OTHER ==
[~2018-04-15] MED LIST changes: +IBUP80TA PO
--- NOTE | 2018-04-15 16:59 | ECGEPIP ---
Stationary ECG Study [facility] Test Date: 2018-04-15 Pat Name: JANAY HINES Department: Room: - Gender: M Setter Machine: RADHA : 1970 Requested By: SULAIMAN Diane Order Number: [id number] Reading MD: Taiwo Hoang Measurements Intervals [place] Rate: 70 P: 52 NM: 162 QRS: -34 QRSD: 122 T: 173 QT: 414 QTc: 447 Interpretive Statements Normal sinus rhythm Left axis deviation with prominent precordial voltage and lateral repolarization abnormalities in keeping with LVH No change from 09/26/17. Electronically Signed On 04-15-2018 16:59:33 EST by Taiwo Hoang
== END ==
LOC: M EKG 15:49
PROVIDERS: ATTEND Anesthesiology
DX: Z01.818 Encounter for other preprocedural examination (principal); R03.0 Elevated blood-pressure reading, without diagnosis of hypertension; G47.30 Sleep apnea, unspecified

== ENCOUNTER 2018-04-19 09:48 | Day surgery (SDC) | payer OTHER ==
[~2018-04-19] VITALS: Ht 195.6 cm; Wt 133.7 kg
[~2018-04-19 09:48] MED LIST changes: -IBUP80TA PO; +LIDOCAINE W/EPINEPHRINE 1% 20ML VIAL As Ordered ONE; +METHYLENE BLUE 0.5% (5MG/ML) 10 ML AMP (PROVAYBLUE)(Q9968 PER 1MG) As Ordered ONE; +OXYMETAZOLINE NASAL SPRAY (AFRIN) As Ordered ONE
[2018-04-19] MEDS ORDERED: IBUP80TA PO (10:21)
[2018-04-19] MEDS ORDERED: ONDANSETRON 4MG/2ML VIAL (J2405) As Ordered ONE ×2 (10:49→15:03)
[2018-04-19] MEDS ORDERED: ROCURONIUM BROMIDE 50 MG/5 ML VIAL As Ordered ONE (10:49)
[2018-04-19] MEDS ORDERED: dexameTHASONE 4 MG/ML 1ML VIAL (J1100) As Ordered ONE ×2 (10:49→13:42)
[2018-04-19] MEDS ORDERED: fentaNYL 250 MCG/5 ML INJECTION (J3010) As Ordered ONE (10:49)
[2018-04-19] MEDS ORDERED: LIDOCAINE 2% INJ 100 MG/5 ML SDV (FOR ANES.) As Ordered ONE (10:49)
[2018-04-19] MEDS ORDERED: PROPOFOL 200 MG/20 ML VIAL As Ordered ONE (10:49)
[2018-04-19] MEDS ORDERED: MIDAZOLAM INJ 2 MG/2 ML VIAL (J2250) As Ordered ONE (10:50)
[2018-04-19] MEDS ORDERED: GLYCOPYRROLATE INJ 0.2 MG/ML 2 ML VIAL As Ordered ONE (12:44)
[2018-04-19] MEDS ORDERED: NEOSTIGMINE 10 MG/10 ML VIAL (J2710) As Ordered ONE (12:44)
[2018-04-19] MEDS ORDERED: RACEPINEPHrine 2.25 % UD INHA As Ordered ONE (13:35)
[2018-04-19] MEDS ORDERED: fentaNYL 100 MCG/2 ML INJECTION (J3010) IV PRN (14:00)
[2018-04-19] MEDS ORDERED: ONDANSETRON 4MG/2ML VIAL (J2405) IV PRN (14:00)
[2018-04-19] MEDS ORDERED: RACEPINEPHrine 2.25 % UD INHA INH ONE (14:00)
[2018-04-19] MEDS ORDERED: dexameTHASONE 4 MG/ML 1ML VIAL (J1100) IV ONE (14:00)
[2018-04-19] MEDS ORDERED: PERCOCET 5MG/325MG TAB PO PRN (14:00)
[2018-04-19] MEDS ORDERED: IBUPROFEN 800 MG TAB PO PRN (14:00)
[2018-04-19] MEDS ORDERED: LR 1,000 ML IV SCH (14:00)
[2018-04-19] MEDS ORDERED: MORPHINE 10 MG/ML 1ML VIAL (J2270) IV PRN (14:00)
[2018-04-19] MEDS ORDERED: LABETALOL HCL 100 MG/20 ML VIAL As Ordered ONE (14:15)
[2018-04-19] MEDS: LABETALOL HCL 100 MG/20 ML VIAL IV SCH ×5 (14:15→14:40)
[2018-04-19] MEDS: PERCOCET 5MG/325MG TAB PO PRN ×2 (14:33→16:50)
[2018-04-19] MEDS ORDERED: MIDAZOLAM INJ 2 MG/2 ML VIAL (J2250) IV PRN (15:00)
[2018-04-19] MEDS ORDERED: METOCLOPRAMIDE INJ 10MG/2ML VIAL (J2765) As Ordered ONE (15:10)
[2018-04-19] MEDS ORDERED: METOCLOPRAMIDE INJ 10MG/2ML VIAL (J2765) IV PRN (15:30)
[2018-04-19 16:40] VITALS: BP 161/88
== END 2018-04-19 17:05 | disposition home or self-care (01) ==
LOC: M SDC 09:48
PROVIDERS: ATTEND Specialist
DX: J34.2 Deviated nasal septum (principal); J31.0 Chronic rhinitis; I10 Essential (primary) hypertension; G47.30 Sleep apnea, unspecified; Z88.2 Allergy status to sulfonamides; Z79.899 Other long term (current) drug therapy
CPT/HCPCS: 30140; 30520; 88300; J1100; J2250; J2405; J2710; J2765; J3010; Q9968

== ENCOUNTER 2018-05-06 10:41 | Day surgery (SDC) | payer OTHER ==
[~2018-05-06] VITALS: Ht 195.6 cm; Wt 131.1 kg
[~2018-05-06 10:41] MED LIST changes: +IBUP80TA PO; -LIDOCAINE W/EPINEPHRINE 1% 20ML VIAL As Ordered ONE; -METHYLENE BLUE 0.5% (5MG/ML) 10 ML AMP (PROVAYBLUE)(Q9968 PER 1MG) As Ordered ONE; +NS 1,000 ML IV ONE; -OXYMETAZOLINE NASAL SPRAY (AFRIN) As Ordered ONE; +PROPOFOL 200 MG/20 ML VIAL As Ordered ONE
[2018-05-06] MEDS ORDERED: LIDOCAINE 2% INJ 100 MG/5 ML SDV (FOR ANES.) As Ordered ONE (12:24)
--- NOTE | 2018-05-06 12:33 | ROOR ---
Patient Name: Jack Copeland Procedure Date: 05/06/2018 12:10 PM Date of : 1970 Age: 48 Room: [facility] Gender: Male Note Status: Finalized Procedure: Colonoscopy Indications: Rectal bleeding Providers: Nakul Shaffer Jr, MD Referring MD: Leigha CALVERT DO Requesting Provider: Medicines: Propofol per Anesthesia Complications: No immediate complications. Procedure: Pre-Anesthesia Assessment: - Prior to the procedure, a History and Physical was performed, and patient medications and allergies were reviewed. The patient is competent. The risks and benefits of the procedure and the sedation options and risks were discussed with the patient. All questions were answered and informed consent was obtained. Patient identification and proposed procedure were verified by the physician and the nurse in the pre-procedure area and in the procedure room. Mental Status Examination: alert and oriented. Airway Examination: normal oropharyngeal airway and neck mobility. Respiratory Examination: clear to auscultation. CV Examination: normal. ASA Grade Assessment: II - A patient with mild systemic disease. After reviewing the risks and benefits, the patient was deemed in satisfactory condition to undergo the procedure. The anesthesia plan was to use moderate sedation / analgesia (conscious sedation). Immediately prior to administration of medications, the patient was re-assessed for adequacy to receive sedatives. The heart rate, respiratory rate, oxygen saturations, blood pressure, adequacy of pulmonary ventilation, and response to care were monitored throughout the procedure. The physical status of the patient was re-assessed after the procedure. The Colonoscope was introduced through the anus and advanced to the cecum, identified by appendiceal orifice and ileocecal valve. The colonoscopy was performed without difficulty. The patient tolerated the procedure well. The quality of the bowel preparation was adequate. Findings: The rectum, sigmoid colon, descending colon, transverse colon, cecum, appendiceal orifice and ileocecal valve appeared normal. A small polyp was found in the ascending colon. The polyp was removed with a hot snare. Resection and retrieval were complete. Non-bleeding internal hemorrhoids were found during endoscopy. The hemorrhoids were moderate, Grade II (internal hemorrhoids that prolapse but reduce spontaneously) and Grade III (internal hemorrhoids that prolapse but require manual reduction). Impression: - The rectum, sigmoid colon, descending colon, transverse colon, cecum, appendiceal orifice and ileocecal valve are normal. - One small polyp in the ascending colon, removed with a hot snare. Resected and retrieved. - Non-bleeding internal hemorrhoids. Recommendation: - Repeat colonoscopy in 5-10 years for surveillance based on pathology results. Nakul Shaffer MD Nakul Shaffer Jr, MD 05/06/2018 12:32:41 PM This report has been signed electronically. Number of Addenda: 0 Note Initiated On: 05/06/2018 12:10 PM Estimated Blood Loss: Estimated blood loss: none.
[2018-05-06 13:00] VITALS: BP 187/94
== END 2018-05-06 13:35 | disposition home or self-care (01) ==
LOC: M OPP 10:41
PROVIDERS: ATTEND Surgery
DX: K64.2 Third degree hemorrhoids (principal); D12.2 Benign neoplasm of ascending colon; K62.5 Hemorrhage of anus and rectum; G47.30 Sleep apnea, unspecified; Z79.899 Other long term (current) drug therapy; Z88.1 Allergy status to other antibiotic agents; Z88.2 Allergy status to sulfonamides; Z87.891 Personal history of nicotine dependence

== ENCOUNTER → 2018-05-10 | Outpatient (REF) | payer OTHER ==
[~2018-05-10] MED LIST changes: -NS 1,000 ML IV ONE; -PROPOFOL 200 MG/20 ML VIAL As Ordered ONE
[2018-05-10 22:18] LABS: CHLAMYDIA DNA AMPLIFICATION NEGATIVE (NEGATIVE); GC DNA AMPLIFICATION NEGATIVE (NEGATIVE)
== END ==
LOC: M LAB REF 18:22
PROVIDERS: ATTEND Physician Assistant
DX: N41.0 Acute prostatitis (principal)

== ENCOUNTER → 2018-07-09 | Outpatient (CLI) | payer OTHER ==
--- NOTE | 2018-07-09 12:56 | REP ---
Clinical: Dysuria. Chronic prostatitis. Technique: Real time dixon scale ultrasound examination using curved array transducer. Findings: The bladder is normal in appearance without wall thickening or mass lesion. Prevoid bladder measures 8.9 x 8.6 x 9.0 cm (450 ml). Postvoid bladder measures 6.6 x 7.1 x 4.9 cm (150 ml). Postvoid residual equals 33%. Prostate gland is enlarged and measures 4.6 x 4.2 x 4.3 cm (44 ml). Bilateral fat containing inguinal hernias are identified. Right inguinal defect measures 5.1 mm at rest and 7.9 mm on Valsalva. Left inguinal defect measures 14.3 mm maximal diameter noted at rest. Fat containing periumbilical hernia just below the mesh is identified with a peritoneal defect measuring 4.9 mm at rest and 5.2 mm on Valsalva. Impression: 1. Bladder demonstrates normal wall thickening and appearance with increased postvoid residual volume noted which may be secondary to outlet obstruction related to enlarged prostate gland. 2. Nonreducible fat-containing bilateral inguinal and infraumbilical ventral hernias. Electronically Signed by James Duenas MD 07/09/2018 12:47 P
== END ==
LOC: M RAD 10:26
PROVIDERS: ATTEND Nurse Practitioner Women's Health
DX: K44.9 Diaphragmatic hernia without obstruction or gangrene (principal)

== ENCOUNTER → 2018-07-21 | Outpatient (CLI) | payer OTHER ==
--- NOTE | 2018-07-21 15:29 | REP ---
Left knee five views History: Pain There is no acute fracture or dislocation. The joint spaces are normal in appearance. Impression: There is no acute fracture or dislocation. Electronically Signed by Jon Fuentes MD 07/21/2018 03:19 P
[2018-07-21 17:19] LABS: RHEUMATOID FACTOR QUANT < 10.0 IU/ML (<15.0)
[2018-07-21 17:20] LABS: BASO # 0.1 10^3/uL (0.0-0.2); BASO % 0.5 % (0.0-1.0); EOS # 0.1 10^3/uL (0.0-0.50); EOS % 0.5 % (0.0-3.0); HEMATOCRIT 49.6 % (42.0-52.0); HEMOGLOBIN 16.2 g/dl (13.5-17.5); LYMPH # 3.2 10^3/uL (1.5-4.5); LYMPH % 26.7 % (24.0-44.0); MEAN CORPUSCULAR HEMOGLOBIN 29.6 pg (27.0-33.0); MEAN CORPUSCULAR HGB CONC 32.7 g/dl (32.0-36.5); MEAN CORPUSCULAR VOLUME 90.7 fl (80.0-96.0); MONO # 1.1 10^3/uL (0.0-0.8); NEUTROPHILS # 7.4 10^3/uL (1.8-7.7); NEUTROPHILS % 62.1 % (36.0-66.0); PLATELET COUNT, AUTOMATED 177 10^3/uL (150-450); RED BLOOD COUNT 5.47 10^6/uL (4.30-6.10); WHITE BLOOD COUNT 11.9 10^3/uL (4.0-10.0)
[2018-07-21 18:55] LABS: ERYTHROCYTE SEDIMENTATION RATE 1 mm/hr (0-15)
[2018-07-24 00:06] LABS: ANTINUCLEAR ANTIBODIES DIRECT Negative (Negative); CYCLIC CITRULLINATED PEPTIDE < 1 units (0-19); Lyme Disease IgG/IgM Antibodie <0.91 ISR (0.00-0.90); Lyme Disease IgM Ab Quantitati <0.80 index (0.00-0.79)
== END ==
LOC: M WUC 15:06
PROVIDERS: ATTEND Physician Assistant
DX: M25.562 Pain in left knee (principal)

== ENCOUNTER → 2018-08-02 | Outpatient (CLI) | payer OTHER ==
[~2018-08-02] MED LIST changes: +GASTROGRAFIN SOLUTION 30ML (Q9963) As Ordered ONE; +ISOVUE-370 76% 100ML VIAL (Q9967) As Ordered ONE
--- NOTE | 2018-08-02 16:40 | REP ---
CT ABDOMEN AND PELVIS WITH ORAL AND IV CONTRAST: TECHNIQUE: Axial contrast enhanced images from the lung bases to the pubic symphysis using 100 mL Isovue 370 intravenous contrast material with multiplanar reformations. In the visualized lung bases there is a tiny 3 mm nodular density in the left lower lobe which has remained stable since 12/25/2016. No acute infiltrate is seen. Tiny cyst is seen in the superior left lobe of the liver anteriorly. Spleen, adrenals and pancreas are unremarkable. Right kidney is normal in appearance. Left kidney demonstrates two cysts superiorly, the larger is posteriorly located and measures approximately 3.2 cm in diameter. There is no hydronephrosis bilaterally. There is no abdominal aortic aneurysm. There is no adenopathy. There is no free air or free fluid. No bowel wall thickening is seen. There is no anterior abdominal wall defect. There is no pelvic mass. Urinary bladder is mildly distended and appears grossly unremarkable. IMPRESSION: Subcentimeter cyst left lobe of the liver. Two left renal cysts. No anterior abdominal wall defect. No adenopathy. No free air or free fluid. No evidence of bowel inflammation. Electronically Signed by Robin Noble MD 08/02/2018 04:53 P
== END ==
LOC: M RAD 11:25
PROVIDERS: ATTEND Surgery
DX: K76.89 Other specified diseases of liver (principal); N28.1 Cyst of kidney, acquired; R10.33 Periumbilical pain; K42.9 Umbilical hernia without obstruction or gangrene; K40.20 Bilateral inguinal hernia, without obstruction or gangrene, not specified as recurrent
CPT/HCPCS: 74177; Q9963; Q9967

== ENCOUNTER → 2018-09-08 | Outpatient (REF) | payer OTHER ==
[~2018-09-08] MED LIST changes: -GASTROGRAFIN SOLUTION 30ML (Q9963) As Ordered ONE; -ISOVUE-370 76% 100ML VIAL (Q9967) As Ordered ONE
== END ==
LOC: M LAB REF 17:00
PROVIDERS: ATTEND Physician Assistant
DX: N39.0 Urinary tract infection, site not specified (principal)

== ENCOUNTER 2018-09-30 12:31 | Emergency (ER) | payer OTHER ==
[~2018-09-30] VITALS: Ht 195.6 cm; Wt 134.1 kg
[~2018-09-30 12:31] MED LIST changes: +LISI10TA15 PO; -LISI10TA2 PO; -LISI20TA PO; +LISI20TA19 PO; -OMEP40CA2 PO; +OMEP40CA97 PO
[2018-09-30] MEDS ORDERED: AMLO10TA5 PO (12:45)
[2018-09-30] MEDS ORDERED: TRAM50TA2 PO (12:45)
[2018-09-30] MEDS ORDERED: GI COCKTAIL 50ML BTL(HYOSCYAMINE/MAALOX/LIDOCAINE VISCOUS)(1:3:1) PO ONE (13:15)
[2018-09-30 13:25] LABS: BASO # 0.1 10^3/uL (0.0-0.2); BASO % 0.6 % (0.0-1.0); EOS % 0.3 % (0.0-3.0); HEMATOCRIT 57.9 % (42.0-52.0); LYMPH # 1.9 10^3/uL (1.5-4.5); LYMPH % 20.9 % (24.0-44.0); MEAN CORPUSCULAR HEMOGLOBIN 30.9 pg (27.0-33.0); MEAN CORPUSCULAR HGB CONC 33.9 g/dl (32.0-36.5); MEAN CORPUSCULAR VOLUME 91.3 fl (80.0-96.0); MONO # 0.7 10^3/uL (0.0-0.8); MONO % 7.8 % (0.0-5.0); NEUTROPHILS # 6.2 10^3/uL (1.8-7.7); NEUTROPHILS % 70.1 % (36.0-66.0); PLATELET COUNT, AUTOMATED 164 10^3/uL (150-450); WHITE BLOOD COUNT 8.8 10^3/uL (4.0-10.0)
[2018-09-30 13:30] LABS: HEMOGLOBIN 19.6 g/dl (13.5-17.5); RED BLOOD COUNT 6.34 10^6/uL (4.30-6.10)
[2018-09-30] MEDS ORDERED: NS 1,000 ML IV ONE (14:00)
[2018-09-30 14:06] LABS: ALBUMIN 4.2 GM/DL (3.2-5.2); ALT/SGPT 22 U/L (12-78); AMYLASE 35 U/L (25-115); BILIRUBIN,DIRECT 0.2 MG/DL (0.0-0.2); BILIRUBIN,TOTAL 1.1 MG/DL (0.2-1.0); BLOOD UREA NITROGEN 20 MG/DL (7-18); CALCIUM LEVEL 9.1 MG/DL (8.5-10.1); CARBON DIOXIDE LEVEL 27 MEQ/L (21-32); CHLORIDE LEVEL 106 MEQ/L (98-107); CK-MB VALUE MASS < 1.0 NG/ML (<3.6); CPK CREATINE PHOSPHOKINASE 169 U/L (39-308); CREATININE FOR GFR 0.95 MG/DL (0.70-1.30); GLOMERULAR FILTRATION RATE > 60.0 (>60); GLUCOSE, FASTING 111 MG/DL (70-100); LIPASE 112 U/L (73-393); MB/CK RELATIVE INDEX 0.59 (< OR =4); POTASSIUM SERUM 3.9 MEQ/L (3.5-5.1); SODIUM LEVEL 141 MEQ/L (136-145); TOTAL PROTEIN 7.4 GM/DL (6.4-8.2); TROPONIN I < 0.02 NG/ML (< 0.10)
[2018-09-30] MEDS ORDERED: ISOVUE-370 76% 100ML VIAL (Q9967) As Ordered ONE ×2 (14:09→14:20)
--- NOTE | 2018-09-30 14:15 | REP ---
REASON: Chest pain. COMPARISON: 09/26/2017, the latest prior. The cardiac silhouette is accentuated by technique. There is no gross cardiomegaly. The lung hernández are clear and essentially unchanged. No acute patchy parenchymal opacities or pleural effusions have developed. There is no change in the osseous structures. IMPRESSION: No acute cardiopulmonary disease. Electronically Signed by Zac Cantu DO 09/30/2018 03:45 P
--- NOTE | 2018-09-30 15:56 | REP ---
CT pulmonary angiogram: With IV contrast. History: Chest pain Comparison studies: December 25, 2016 Contrast dose: 100 mL of Isovue [address] technique: Helical scanning is acquired and overlapping 1.5 mm and contiguous 3 mm axial images are reformatted. In addition, maximum intensity projection and multiplanar re-formation images are generated in sagittal and coronal imaging projections. CT pulmonary angiographic findings: There is good opacification of the pulmonary arterial tree and there is no CT evidence of pulmonary embolism. The thoracic aorta enhances normally and homogeneously. No aneurysm or dissection is seen. The lung hernández show no evidence of infiltrate. No pleural or pericardial effusion is seen. No hilar or mediastinal mass or adenopathy. Maximum intensity projection images show no additional abnormality. Mild degenerative changes in the thoracic spine. No bony destructive lesion is appreciated. Impression: No CT evidence of pulmonary embolus. Unremarkable CT pulmonary angiogram. Electronically Signed by Jack Ron MD 09/30/2018 05:38 P
--- NOTE | 2018-09-30 16:00 | REP ---
REASON FOR EXAM: Left upper quadrant pain. COMPARISON: 2 months ago. CONTRAST: 100 mL Isovue 370. There is no change in the lung bases. The liver, gallbladder, spleen, pancreas, adrenal glands, and kidneys are unchanged. The abdominal aorta and paraaortic regions are unchanged. The bowel loops and their mesenteries are unchanged. There is no free fluid or free air. CT PELVIS: The bowel loops and their mesenteries are unchanged. There is no free fluid or free air. There is no mass or adenopathy. Bone window technique throughout the exam shows no change in the osseous structures. IMPRESSION: No change. No acute intra-abdominal or intrapelvic disease. Tiny hepatic cyst and renal cysts status quo. Electronically Signed by Zac Cantu DO 09/30/2018 05:58 P
[2018-09-30 16:18] LABS: CK-MB VALUE MASS < 1.0 NG/ML (<3.6); CPK CREATINE PHOSPHOKINASE 141 U/L (39-308); MB/CK RELATIVE INDEX 0.71 (< OR =4); TROPONIN I < 0.02 NG/ML (< 0.10)
[2018-09-30 16:30] VITALS: BP 125/66
[2018-09-30] MEDS ORDERED: PRIL20TA2 PO (16:45)
[2018-09-30] MEDS ORDERED: ASPI81CH33 PO (16:45)
[2018-09-30] MEDS ORDERED: SUCR1TA PO (16:46)
--- NOTE | 2018-10-01 06:08 | ECGEPIP ---
[facility] - ED Test Date: 2018-09-30 Pat Name: JANAY HINES Department: Room: - Gender: Male Elementary Reading Tutor: ANABELA : 1970 Requested By: Eliza Amaro Order Number: [id number] Reading MD: Alejandro Pierce Measurements Intervals [place] Rate: 82 P: 46 [place]: 159 QRS: -27 QRSD: 114 T: 51 QT: 383 QTc: 448 Interpretive Statements SINUS RHYTHM BORDERLINE LEFT AXIS DEVIATION MODERATE INTRAVENTRICULAR CONDUCTION DELAY NONSPECIFIC T-WAVE ABNORMALITY SIMILAR TO 04/15/18 Electronically Signed on 10-01-2018 6:08:39 EDT by Alejandro Pierce
--- NOTE | 2018-10-01 06:12 | ECGEPIP ---
[facility] - ED Test Date: 2018-09-30 Pat Name: JANAY HINES Department: Room: - Gender: Male Criminal Justice Social Worker: ANABELA : 1970 Requested By: ROLY Angulo Order Number: [id number] Reading MD: Alejandro Pierce Measurements Intervals [place] Rate: 68 P: 15 [place]: 156 QRS: -24 QRSD: 117 T: 40 QT: 317 QTc: 338 Interpretive Statements SINUS RHYTHM BORDERLINE LEFT AXIS DEVIATION MODERATE INTRAVENTRICULAR CONDUCTION DELAY NONSPECIFIC T-WAVE ABNORMALITY SIMILAR TO PRIOR ON SAME DATE Electronically Signed on 10-01-2018 6:12:00 EDT by Alejandro Pierce
== END 2018-09-30 16:56 | disposition home or self-care (01) ==
LOC: EDBD 12:31 → M ED 12:31
DX: K21.0 Gastro-esophageal reflux disease with esophagitis (principal); R07.89 Other chest pain; I45.4 Nonspecific intraventricular block; E78.5 Hyperlipidemia, unspecified; I10 Essential (primary) hypertension; F32.9 Major depressive disorder, single episode, unspecified; F34.9 Persistent mood [affective] disorder, unspecified; E29.1 Testicular hypofunction; K40.90 Unilateral inguinal hernia, without obstruction or gangrene, not specified as recurrent; Z87.891 Personal history of nicotine dependence; Z79.82 Long term (current) use of aspirin; Z79.899 Other long term (current) drug therapy; Z88.1 Allergy status to other antibiotic agents
CPT/HCPCS: 71045; 71275; 74177; 80048; 80076; 82150; 82550; 82553; 83690; 84484; 85025; 93005; 93041; 96360; 96361; 99285; Q9967

== ENCOUNTER → 2019-01-17 | Outpatient (CLI) | payer OTHER ==
[~2019-01-17] MED LIST changes: +AMLO10TA5 PO; +ASPI81CH33 PO; +PRIL20TA2 PO; +SUCR1TA PO; +TRAM50TA2 PO
[2019-01-17 18:25] LABS: ALBUMIN 4.1 GM/DL (3.2-5.2); ALT/SGPT 24 U/L (12-78); BILIRUBIN,TOTAL 0.5 MG/DL (0.2-1.0); BLOOD UREA NITROGEN 16 MG/DL (7-18); CARBON DIOXIDE LEVEL 31 MEQ/L (21-32); CHLORIDE LEVEL 103 MEQ/L (98-107); CREATININE FOR GFR 0.93 MG/DL (0.70-1.30); GLOMERULAR FILTRATION RATE > 60.0 (>60); GLUCOSE, FASTING 99 MG/DL (70-100); POTASSIUM SERUM 4.1 MEQ/L (3.5-5.1); SODIUM LEVEL 141 MEQ/L (136-145); TOTAL PROTEIN 7.4 GM/DL (6.4-8.2)
== END ==
LOC: M PLALAB 15:55
PROVIDERS: ATTEND Family Medicine
DX: I10 Essential (primary) hypertension (principal)

== ENCOUNTER → 2019-01-27 | Outpatient (REF) | payer OTHER | LOC: M LAB REF 17:00 | PROVIDERS: ATTEND Physician Assistant | DX: R10.30 Lower abdominal pain, unspecified (principal) ==

== ENCOUNTER → 2019-02-01 | Outpatient (CLI) | payer OTHER ==
[2019-02-01 18:43] LABS: RHEUMATOID FACTOR QUANT < 10.0 IU/ML (<15.0); TOTAL PROTEIN 7.5 GM/DL (6.4-8.2)
[2019-02-01 18:52] LABS: FOLATE 12.6 NG/ML; VITAMIN B12 LEVEL 268 PG/ML
[2019-02-01 20:07] LABS: HEMOGLOBIN A1c 5.3 %
[2019-02-03 08:07] LABS: ALBUMIN 4.77 GM/DL (3.29-5.55); ALBUMIN % 63.6 % (55.8-66.1); ALPHA-1-GLOBULIN % 3.6 % (2.9-4.9); ALPHA-1-GLOBULINS 0.27 GM/DL (0.17-0.41); ALPHA-2-GLOBULINS 0.61 GM/DL (0.42-0.99); ALPHA-2-GLOBULINS % 8.1 % (7.1-11.8); BETA-1-GLOBULINS 0.49 GM/DL (0.28-0.60); BETA-1-GLOBULINS % 6.5 % (4.7-7.2); BETA-2-GLOBULINS 0.52 GM/DL (0.19-0.55)
[2019-02-03 08:08] LABS: BETA-2-GLOBULINS % 6.9 % (3.2-6.5); GAMMA GLOBULIN % 11.3 % (11.1-18.8); GAMMA GLOBULINS 0.85 GM/DL (0.65-1.58)
== END ==
LOC: M PLALAB 15:43
PROVIDERS: ATTEND Psychiatry & Neurology Neurology
DX: G62.9 Polyneuropathy, unspecified (principal); I10 Essential (primary) hypertension; Z72.51 High risk heterosexual behavior

== ENCOUNTER → 2019-02-25 | Outpatient (CLI) | payer OTHER ==
[2019-02-25 18:46] LABS: INR 0.92; PROTHROMBIN TIME 12.1 SECONDS (11.8-14.0)
[2019-02-25 18:47] LABS: PARTIAL THROMBOPLASTIN TIME 27.9 SECONDS (25.0-38.4)
[2019-02-25 18:58] LABS: ALT/SGPT 20 U/L (12-78); BILIRUBIN,DIRECT 0.1 MG/DL (0.0-0.2); BILIRUBIN,TOTAL 0.5 MG/DL (0.2-1.0); FERRITIN 40 NG/ML (26-388); IMMUNOGLOBULIN G 876 MG/DL (681-1648); IRON (FE) 74 UG/DL (65-175); PERCENT SATURATION 25.3 % (19.7-50.0); THYROID STIMULATING HORMONE 0.783 uIU/ML (0.358-3.740); TOTAL IRON BINDING CAPACITY 293 UG/DL (250-450); TOTAL PROTEIN 6.9 GM/DL (6.4-8.2)
[2019-02-25 19:34] LABS: HEPATITIS B SURFACE ANTIBODY NEGATIVE (POSITIVE)
[2019-02-25 19:44] LABS: HEPATITIS B SURFACE ANTIGEN NEGATIVE (NEGATIVE)
[2019-02-25 20:12] LABS: HEPATITIS C VIRUS ABY INDEX < 0.0 INDEX (<0.8)
[2019-02-25 20:14] LABS: HEPATITIS A ANTIBODY IGM NEGATIVE (NEGATIVE)
[2019-03-01 00:06] LABS: ALPHA 1 ANTITRYPSIN 108 mg/dL (101-187); ANTI-MITOCHONDRIAL ANTIBODY <20.0 Units (0.0-20.0); ANTI-SMOOTH MUSCLE ANTIBODY 12 Units (0-19); ANTINUCLEAR ANTIBODIES DIRECT Negative (Negative); CERULOPLASMIN 20.9 mg/dL (16.0-31.0); HEPATITIS A IgG TOTAL Negative (Negative); LIVER-KIDNEY MICROSOMAL ABY <20.1 Units (0.0-20.0); TISSUE TRANSGLUTAMINASE IgG <2 U/mL (0-5)
[2019-03-01 12:56] LABS: ALBUMIN % 62.4 % (55.8-66.1); ALPHA-1-GLOBULIN % 3.7 % (2.9-4.9)
[2019-03-01 12:57] LABS: ALBUMIN 4.31 GM/DL (3.29-5.55); ALPHA-1-GLOBULINS 0.26 GM/DL (0.17-0.41); ALPHA-2-GLOBULINS 0.64 GM/DL (0.42-0.99); ALPHA-2-GLOBULINS % 9.3 % (7.1-11.8); BETA-1-GLOBULINS 0.43 GM/DL (0.28-0.60); BETA-1-GLOBULINS % 6.2 % (4.7-7.2); BETA-2-GLOBULINS 0.46 GM/DL (0.19-0.55); BETA-2-GLOBULINS % 6.7 % (3.2-6.5); GAMMA GLOBULIN % 11.7 % (11.1-18.8); GAMMA GLOBULINS 0.81 GM/DL (0.65-1.58)
== END ==
LOC: M PLALAB 15:08
PROVIDERS: ATTEND Internal Medicine Gastroenterology
DX: R94.5 Abnormal results of liver function studies (principal); K76.0 Fatty (change of) liver, not elsewhere classified; K83.9 Disease of biliary tract, unspecified; Z86.010 Personal history of colon polyps

== ENCOUNTER → 2019-03-03 | Outpatient (CLI) | payer OTHER ==
[~2019-03-03] MED LIST changes: +ASPI81TA85 PO; +B-12100011 SL; +CLIN300C5; +HYDR-3363; +HYDR-3910; +TADA20TA
[2019-03-03 10:05] LABS: BASO % 0.6 % (0.0-1.0); EOS # 0.1 10^3/uL (0.0-0.5); HEMATOCRIT 56.2 % (42.0-52.0); HEMOGLOBIN 18.2 g/dl (13.5-17.5); LYMPH # 1.7 10^3/uL (1.5-5.0); LYMPH % 24.1 % (24.0-44.0); MEAN CORPUSCULAR HEMOGLOBIN 29.4 pg (27.0-33.0); MEAN CORPUSCULAR HGB CONC 32.4 g/dl (32.0-36.5); MEAN CORPUSCULAR VOLUME 90.6 fl (80.0-96.0); MONO # 0.7 10^3/uL (0.0-0.8); MONO % 10.3 % (0.0-5.0); NEUTROPHILS # 4.4 10^3/uL (1.5-8.5); NEUTROPHILS % 63.6 % (36.0-66.0); PLATELET COUNT, AUTOMATED 172 10^3/uL (150-450); WHITE BLOOD COUNT 6.9 10^3/uL (4.0-10.0)
[2019-03-03 10:35] LABS: BILIRUBIN,DIRECT 0.2 MG/DL (0.0-0.2); BILIRUBIN,TOTAL 1.1 MG/DL (0.2-1.0); CHOLESTEROL RISK RATIO 5.488 (<5)
== END ==
LOC: M PLALAB 08:20
PROVIDERS: ATTEND Nurse Practitioner Family
DX: Z51.81 Encounter for therapeutic drug level monitoring (principal); Z79.899 Other long term (current) drug therapy; L70.0 Acne vulgaris

== ENCOUNTER 2019-03-07 19:02 | Emergency (ER) | payer OTHER ==
[~2019-03-07] VITALS: Ht 182.9 cm; Wt 136.0 kg
[~2019-03-07 19:02] MED LIST changes: -ASPI81TA85 PO; -B-12100011 SL; -CLIN300C5; -HYDR-3363; -HYDR-3910; -TADA20TA
[2019-03-07] MEDS ORDERED: TADA20TA (19:17)
[2019-03-07] MEDS ORDERED: HYDR-3363 (19:17)
[2019-03-07] MEDS ORDERED: CLIN300C5 (19:17)
[2019-03-07] MEDS ORDERED: HYDR-3910 (19:17)
[2019-03-07] MEDS ORDERED: B-12100011 SL (19:18)
[2019-03-07 19:32] LABS: BASO % 0.3 % (0.0-1.0); EOS % 0.1 % (0.0-3.0); HEMATOCRIT 62.3 % (42.0-52.0); LYMPH # 0.8 10^3/uL (1.5-5.0); LYMPH % 8.2 % (24.0-44.0); MEAN CORPUSCULAR HEMOGLOBIN 29.5 pg (27.0-33.0); MEAN CORPUSCULAR HGB CONC 33.2 g/dl (32.0-36.5); MEAN CORPUSCULAR VOLUME 88.7 fl (80.0-96.0); MONO # 0.6 10^3/uL (0.0-0.8); MONO % 5.8 % (0.0-5.0); NEUTROPHILS # 8.3 10^3/uL (1.5-8.5); NEUTROPHILS % 85.2 % (36.0-66.0); PLATELET COUNT, AUTOMATED 158 10^3/uL (150-450); RED BLOOD COUNT 7.02 10^6/uL (4.30-6.10); WHITE BLOOD COUNT 9.7 10^3/uL (4.0-10.0)
[2019-03-07 19:40] LABS: HEMOGLOBIN 20.7 g/dl (13.5-17.5)
[2019-03-07] MEDS ORDERED: NS 500 ML IV ONE ×2 (19:45)
[2019-03-07 20:03] LABS: ALBUMIN 4.4 GM/DL (3.2-5.2); ALT/SGPT 18 U/L (12-78); BILIRUBIN,DIRECT 0.2 MG/DL (0.0-0.2); BLOOD UREA NITROGEN 17 MG/DL (7-18); CALCIUM LEVEL 9.3 MG/DL (8.5-10.1); CARBON DIOXIDE LEVEL 26 MEQ/L (21-32); CHLORIDE LEVEL 105 MEQ/L (98-107); CK-MB VALUE MASS < 1.0 NG/ML (<3.6); CPK CREATINE PHOSPHOKINASE 51 U/L (39-308); CREATININE FOR GFR 0.98 MG/DL (0.70-1.30); FREE T4 1.14 NG/DL (0.76-1.46); GLOMERULAR FILTRATION RATE > 60.0 (>60); GLUCOSE, FASTING 90 MG/DL (70-100); LIPASE 135 U/L (73-393); MB/CK RELATIVE INDEX 1.96 (< OR =4); POTASSIUM SERUM 3.5 MEQ/L (3.5-5.1); SODIUM LEVEL 140 MEQ/L (136-145); THYROID STIMULATING HORMONE 0.782 uIU/ML (0.358-3.740); TOTAL PROTEIN 7.9 GM/DL (6.4-8.2); TROPONIN I < 0.02 NG/ML (< 0.10)
[2019-03-07 20:05] LABS: INR 1.04; PARTIAL THROMBOPLASTIN TIME 27.5 SECONDS (25.0-38.4); PROTHROMBIN TIME 13.3 SECONDS (11.8-14.0)
--- NOTE | 2019-03-07 20:36 | REP ---
Portable chest of 07:22 p.m., single AP view with the patient upright: Comparison is 09/30/2018. There is increased density superimposed over the cardiac left ventricle. This could represent a left lower lobe infiltrate or could be artifact from superimposed pulmonary vasculature. The lung hernández otherwise clear. There are no pleural effusions. Cardiac size is normal. The sanna, mediastinum, skeletal structures are unremarkable. Impression: Nonspecific increased density inferiorly in the left lung as described. Electronically Signed by Robin Lopez MD 03/07/2019 08:28 P
[2019-03-07] MEDS ORDERED: METOCLOPRAMIDE INJ 10MG/2ML VIAL (J2765) IV ONE (21:00)
[2019-03-07] MEDS ORDERED: ISOVUE-370 76% 100ML VIAL (Q9967) As Ordered ONE (21:24)
[2019-03-07 21:50] LABS: INFLUENZA A AMPLIFICATION NEGATIVE (NEGATIVE); INFLUENZA B AMPLIFICATION NEGATIVE (NEGATIVE)
--- NOTE | 2019-03-07 22:19 | REPVR ---
PROCEDURE INFORMATION: Exam: CT Angiography Chest With Contrast Exam date and time: 03/07/2019 9:51 PM Age: 49 years old Clinical indication: Chest pain; Additional info: Cp TECHNIQUE: Imaging protocol: Computed tomographic angiography of the chest with intravenous contrast. 3D rendering: MIP and/or 3D reconstructed images were created by the technologist. Radiation optimization: All CT scans at this facility use at least one of these dose optimization techniques: automated exposure control; mA and/or kV adjustment per patient size (includes targeted exams where dose is matched to clinical indication); or iterative reconstruction. Contrast material: ISOVUE 370; Contrast volume: 75 ml; Contrast route: IV; COMPARISON: CT ANGIO CHEST 09/30/2018 2:14 PM FINDINGS: Pulmonary arteries: There are no pulmonary emboli. Aorta: There is no aortic dissection or aneurysm. Lungs: Bibasilar atelectasis Pleural space: Unremarkable. No pneumothorax. No pleural effusion. Heart: Unremarkable. No cardiomegaly. No pericardial effusion. Lymph nodes: Unremarkable. No enlarged lymph nodes. Bones/joints: The spine demonstrates mild degenerative changes. Soft tissues: Unremarkable. IMPRESSION: 1. There is no aortic dissection or aneurysm. 2. There are no pulmonary emboli. 3. No acute pulmonary parenchymal abnormalities. Electronically signed by: Freddy Villatoro On 03/07/2019 22:18:49 PM
[2019-03-07] MEDS ORDERED: ASPI81TA85 PO (22:53)
[2019-03-07 23:00] VITALS: BP 147/100
[2019-03-07] MEDS ORDERED: ASPIRIN 325 MG TAB PO ONE (23:00)
--- NOTE | 2019-03-08 20:45 | ECGEPIP ---
[facility] - ED Test Date: 2019-03-07 Pat Name: JANAY HINES Department: Room: - Gender: Male Digital Strategy Specialist: KESHA : 1970 Requested By: RANDAL NAVA Order Number: [id number] Reading MD: Alejandro Pierce Measurements Intervals [place] Rate: 106 P: 54 SD: 159 QRS: -41 QRSD: 109 T: 80 QT: 356 QTc: 474 Interpretive Statements SINUS TACHYCARDIA POSSIBLE LEFT ATRIAL ENLARGEMENT LEFT AXIS DEVIATION INCOMPLETE RIGHT BUNDLE BRANCH BLOCK NONSPECIFIC T-WAVE ABNORMALITY SIMILAR TO 09/30/18 Electronically Signed on 03-08-2019 20:45:38 EST by Alejandro Pierce
== END 2019-03-07 23:04 | disposition home or self-care (01) ==
LOC: M ED 19:02
DX: D75.1 Secondary polycythemia (principal); R00.0 Tachycardia, unspecified; I45.19 Other right bundle-branch block; R05 Cough; I10 Essential (primary) hypertension; F32.9 Major depressive disorder, single episode, unspecified; G89.29 Other chronic pain; M54.9 Dorsalgia, unspecified; G47.00 Insomnia, unspecified; G43.909 Migraine, unspecified, not intractable, without status migrainosus; Z87.891 Personal history of nicotine dependence; Z79.82 Long term (current) use of aspirin; Z79.899 Other long term (current) drug therapy; Z88.1 Allergy status to other antibiotic agents
CPT/HCPCS: 71045; 71275; 80048; 80076; 82550; 82553; 83690; 84439; 84443; 84484; 85025; 85610; 85730; 87502; 93005; 93041; 94760; 96361; 96374; 99285; J2765; Q9967

== ENCOUNTER → 2019-03-07 | Outpatient (CLI) | payer OTHER ==
[2019-03-07 13:29] LABS: ALBUMIN 4.2 GM/DL (3.2-5.2); ALT/SGPT 18 U/L (12-78); BILIRUBIN,TOTAL 0.9 MG/DL (0.2-1.0); BLOOD UREA NITROGEN 21 MG/DL (7-18); CALCIUM LEVEL 8.7 MG/DL (8.5-10.1); CARBON DIOXIDE LEVEL 33 MEQ/L (21-32); CHLORIDE LEVEL 106 MEQ/L (98-107); CREATININE FOR GFR 1.02 MG/DL (0.70-1.30); GLOMERULAR FILTRATION RATE > 60.0 (>60); GLUCOSE, FASTING 82 MG/DL (70-100); POTASSIUM SERUM 3.8 MEQ/L (3.5-5.1); SODIUM LEVEL 141 MEQ/L (136-145); TOTAL PROTEIN 7.4 GM/DL (6.4-8.2)
[2019-03-07 14:15] LABS: HIV 1&2 SCREEN CENTAUR NEGATIVE (NEGATIVE)
[2019-03-09 00:06] LABS: HSV IgM TYPES 1&2 <0.91 Ratio (0.00-0.90); HSV TYPE II IgG SPECIFIC <0.91 index (0.00-0.90)
== END ==
LOC: M PLALAB 12:04
PROVIDERS: ATTEND Family Medicine
DX: Z72.51 High risk heterosexual behavior (principal); I10 Essential (primary) hypertension

== ENCOUNTER → 2019-04-19 | Outpatient (CLI) | payer OTHER ==
[~2019-04-19] MED LIST changes: +ASPI81TA85 PO; +B-12100011 SL; +CLIN300C5; +HYDR-3363; +HYDR-3910; +TADA20TA
[2019-04-19 15:18] LABS: ALBUMIN 4.2 GM/DL (3.2-5.2); ALT/SGPT 32 U/L (12-78); BLOOD UREA NITROGEN 18 MG/DL (7-18); CALCIUM LEVEL 9.2 MG/DL (8.5-10.1); CARBON DIOXIDE LEVEL 32 MEQ/L (21-32); CHLORIDE LEVEL 103 MEQ/L (98-107); CHOLESTEROL LEVEL 196 MG/DL (<200); CREATININE FOR GFR 1.01 MG/DL (0.70-1.30); GLOMERULAR FILTRATION RATE > 60.0 (>60); GLUCOSE, FASTING 85 MG/DL (70-100); HDL CHOLESTEROL 46 MG/DL (>40); LDL CHOLESTEROL 118 MG/DL (<100); NON-HDL-C 150 MG/DL; POTASSIUM SERUM 4.2 MEQ/L (3.5-5.1); SODIUM LEVEL 139 MEQ/L (136-145); TOTAL PROTEIN 7.5 GM/DL (6.4-8.2); TRIGLYCERIDES LEVEL 160 MG/DL (<150)
== END ==
LOC: M PLALAB 09:53
PROVIDERS: ATTEND Family Medicine
DX: E78.2 Mixed hyperlipidemia (principal)

== ENCOUNTER → 2019-05-11 | Outpatient (CLI) | payer OTHER ==
[2019-05-11 11:45] LABS: FOLATE 14.7 NG/ML
[2019-05-14 00:07] LABS: ANTI-PARIETAL CELL ANTIBODY 35.7 Units (0.0-20.0)
== END ==
LOC: M PLALAB 09:25
PROVIDERS: ATTEND Psychiatry & Neurology Neurology
DX: E53.8 Deficiency of other specified B group vitamins (principal)

== ENCOUNTER → 2019-05-11 | Outpatient (CLI) | payer OTHER ==
[2019-05-11 11:37] LABS: ALBUMIN 3.9 GM/DL (3.2-5.2); ALT/SGPT 32 U/L (12-78); BILIRUBIN,TOTAL 0.5 MG/DL (0.2-1.0); BLOOD UREA NITROGEN 22 MG/DL (7-18); CALCIUM LEVEL 9.2 MG/DL (8.5-10.1); CARBON DIOXIDE LEVEL 31 MEQ/L (21-32); CHLORIDE LEVEL 105 MEQ/L (98-107); CHOLESTEROL LEVEL 183 MG/DL (<200); CHOLESTEROL RISK RATIO 3.452 (<5); GLOMERULAR FILTRATION RATE > 60.0 (>60); GLUCOSE, FASTING 88 MG/DL (70-100); HDL CHOLESTEROL 53 MG/DL (>40); LDL CHOLESTEROL 108 MG/DL (<100); NON-HDL-C 130 MG/DL; POTASSIUM SERUM 3.9 MEQ/L (3.5-5.1); SODIUM LEVEL 140 MEQ/L (136-145); TOTAL PROTEIN 7.5 GM/DL (6.4-8.2); TRIGLYCERIDES LEVEL 109 MG/DL (<150)
== END ==
LOC: M PLALAB 09:33
PROVIDERS: ATTEND Family Medicine
DX: E78.2 Mixed hyperlipidemia (principal)

== ENCOUNTER → 2019-05-11 | Outpatient (CLI) | payer OTHER ==
[2019-05-11 11:33] LABS: ALT/SGPT 26 U/L (12-78); CHOLESTEROL LEVEL 192 MG/DL (< 200); TRIGLYCERIDES LEVEL 112 MG/DL (<150)
== END ==
LOC: M PLALAB 09:36
PROVIDERS: ATTEND Nurse Practitioner Family
DX: L70.0 Acne vulgaris (principal); Z51.81 Encounter for therapeutic drug level monitoring; Z79.899 Other long term (current) drug therapy

== ENCOUNTER → 2019-05-26 | Outpatient (CLI) | payer OTHER ==
[2019-05-26 12:52] LABS: BASO % 0.7 % (0.0-1.0); EOS # 0.1 10^3/uL (0.0-0.5); EOS % 1.1 % (0.0-3.0); HEMATOCRIT 52.7 % (42.0-52.0); HEMOGLOBIN 17.8 g/dl (13.5-17.5); LYMPH # 1.6 10^3/uL (1.5-5.0); LYMPH % 27.8 % (24.0-44.0); MEAN CORPUSCULAR HEMOGLOBIN 30.2 pg (27.0-33.0); MEAN CORPUSCULAR HGB CONC 33.8 g/dl (32.0-36.5); MEAN CORPUSCULAR VOLUME 89.5 fl (80.0-96.0); MONO # 0.6 10^3/uL (0.0-0.8); MONO % 10.9 % (0.0-5.0); NEUTROPHILS # 3.3 10^3/uL (1.5-8.5); NEUTROPHILS % 59.1 % (36.0-66.0); PLATELET COUNT, AUTOMATED 171 10^3/uL (150-450); RED BLOOD COUNT 5.89 10^6/uL (4.30-6.10); WHITE BLOOD COUNT 5.6 10^3/uL (4.0-10.0)
== END ==
LOC: M PLALAB 10:53
PROVIDERS: ATTEND Family Medicine
DX: E29.1 Testicular hypofunction (principal); D75.1 Secondary polycythemia

== ENCOUNTER → 2019-06-15 | Outpatient (CLI) | payer OTHER ==
[2019-06-15 14:38] LABS: ALT/SGPT 27 U/L (12-78); CHOLESTEROL LEVEL 174 MG/DL (< 200); TRIGLYCERIDES LEVEL 121 MG/DL (<150)
== END ==
LOC: M PLALAB 11:32
PROVIDERS: ATTEND Nurse Practitioner Family
DX: Z51.81 Encounter for therapeutic drug level monitoring (principal); Z79.899 Other long term (current) drug therapy; L70.0 Acne vulgaris

== ENCOUNTER → 2019-07-05 | Outpatient (REF) | payer OTHER | LOC: M LAB REF 16:48 | PROVIDERS: ATTEND Physician Assistant | DX: R30.0 Dysuria (principal) ==

== ENCOUNTER → 2019-07-19 | Outpatient (CLI) | payer OTHER ==
[2019-07-19 11:42] LABS: INR 1.04; PROTHROMBIN TIME 13.3 SECONDS (11.8-14.0)
[2019-07-19 11:43] LABS: PARTIAL THROMBOPLASTIN TIME 30.5 SECONDS (25.0-38.4)
[2019-07-19 11:52] LABS: BASO % 0.7 % (0.0-1.0); EOS # 0.1 10^3/uL (0.0-0.5); EOS % 0.9 % (0.0-3.0); HEMATOCRIT 56.3 % (42.0-52.0); HEMOGLOBIN 17.9 g/dl (13.5-17.5); LYMPH # 1.4 10^3/uL (1.5-5.0); LYMPH % 23.9 % (24.0-44.0); MEAN CORPUSCULAR HEMOGLOBIN 28.3 pg (27.0-33.0); MEAN CORPUSCULAR HGB CONC 31.8 g/dl (32.0-36.5); MEAN CORPUSCULAR VOLUME 89.1 fl (80.0-96.0); MONO # 0.5 10^3/uL (0.0-0.8); MONO % 8.3 % (0.0-5.0); NEUTROPHILS # 3.8 10^3/uL (1.5-8.5); NEUTROPHILS % 65.7 % (36.0-66.0); PLATELET COUNT, AUTOMATED 152 10^3/uL (150-450); RED BLOOD COUNT 6.32 10^6/uL (4.30-6.10); WHITE BLOOD COUNT 5.8 10^3/uL (4.0-10.0)
[2019-07-19 12:18] LABS: ALT/SGPT 29 U/L (12-78); CHOLESTEROL LEVEL 180 MG/DL (< 200); TRIGLYCERIDES LEVEL 164 MG/DL (<150)
[2019-07-19 12:21] LABS: ALBUMIN 4.1 GM/DL (3.2-5.2); ALT/SGPT 29 U/L (12-78); BILIRUBIN,TOTAL 0.7 MG/DL (0.2-1.0); BLOOD UREA NITROGEN 14 MG/DL (7-18); CALCIUM LEVEL 9.1 MG/DL (8.5-10.1); CARBON DIOXIDE LEVEL 31 MEQ/L (21-32); CHLORIDE LEVEL 102 MEQ/L (98-107); CHOLESTEROL LEVEL 181 MG/DL (<200); CHOLESTEROL RISK RATIO 4.525 (<5); CREATININE FOR GFR 0.97 MG/DL (0.70-1.30); GLOMERULAR FILTRATION RATE > 60.0 (>60); GLUCOSE, FASTING 91 MG/DL (70-100); HDL CHOLESTEROL 40 MG/DL (>40); LDL CHOLESTEROL 106 MG/DL (<100); NON-HDL-C 141 MG/DL; POTASSIUM SERUM 3.9 MEQ/L (3.5-5.1); SODIUM LEVEL 138 MEQ/L (136-145); TOTAL PROTEIN 7.6 GM/DL (6.4-8.2); TRIGLYCERIDES LEVEL 173 MG/DL (<150)
[2019-07-19 12:48] LABS: ALT/SGPT 29 U/L (12-78); BILIRUBIN,DIRECT 0.2 MG/DL (0.0-0.2); BILIRUBIN,TOTAL 0.7 MG/DL (0.2-1.0); FERRITIN 13 NG/ML (26-388); IRON (FE) 84 UG/DL (65-175); PERCENT SATURATION 23.1 % (19.7-50.0); TOTAL IRON BINDING CAPACITY 364 UG/DL (250-450); TOTAL PROTEIN 7.3 GM/DL (6.4-8.2)
[2019-07-20 09:20] LABS: HEPATITIS B SURFACE ANTIBODY NEGATIVE (POSITIVE)
[2019-07-20 09:25] LABS: HEPATITIS B SURFACE ANTIGEN NEGATIVE (NEGATIVE)
[2019-07-20 09:52] LABS: HEPATITIS C VIRUS ABY INDEX 0.2 INDEX (<0.8)
[2019-07-20 09:54] LABS: HEPATITIS A ANTIBODY IGM NEGATIVE (NEGATIVE)
[2019-07-20 19:07] LABS: ALPHA 1 ANTITRYPSIN 123 mg/dL (101-187); ANTI-MITOCHONDRIAL ANTIBODY <20.0 Units (0.0-20.0); ANTI-SMOOTH MUSCLE ANTIBODY 14 Units (0-19); ANTINUCLEAR ANTIBODIES DIRECT Negative (Negative); CERULOPLASMIN 22.7 mg/dL (16.0-31.0); HEPATITIS A IgG TOTAL Negative (Negative); LIVER-KIDNEY MICROSOMAL ABY <20.1 Units (0.0-20.0); TISSUE TRANSGLUTAMINASE IgA <2 U/mL (0-3)
[2019-07-21 11:11] LABS: ALBUMIN % 60.3 % (55.8-66.1); ALPHA-1-GLOBULIN % 3.9 % (2.9-4.9); ALPHA-1-GLOBULINS 0.28 GM/DL (0.17-0.41); ALPHA-2-GLOBULINS 0.66 GM/DL (0.42-0.99); BETA-1-GLOBULINS 0.52 GM/DL (0.28-0.60); BETA-1-GLOBULINS % 7.1 % (4.7-7.2); BETA-2-GLOBULINS % 6.8 % (3.2-6.5); GAMMA GLOBULIN % 12.9 % (11.1-18.8); GAMMA GLOBULINS 0.94 GM/DL (0.65-1.58)
== END ==
LOC: M PLALAB 08:34
PROVIDERS: ATTEND Internal Medicine Gastroenterology
DX: R19.4 Change in bowel habit (principal); K21.9 Gastro-esophageal reflux disease without esophagitis; K76.0 Fatty (change of) liver, not elsewhere classified; R94.5 Abnormal results of liver function studies; E29.1 Testicular hypofunction; E78.2 Mixed hyperlipidemia

== ENCOUNTER → 2019-12-14 | Outpatient (REF) | payer OTHER ==
[~2019-12-14] MED LIST changes: -AMLO10TA5 PO; +AMLO1TAB25 PO; -ASPI81TA85 PO; +ASPI81TA86 PO; -LISI20TA19 PO; +LISI20TA35 PO
[2019-12-14 13:45] LABS: HEMATOCRIT 55.7 % (42.0-52.0); HEMOGLOBIN 17.9 g/dl (13.5-17.5); MEAN CORPUSCULAR HGB CONC 32.1 g/dl (32.0-36.5); MEAN CORPUSCULAR VOLUME 87.2 fl (80.0-96.0); PLATELET COUNT, AUTOMATED 159 10^3/uL (150-450); RED BLOOD COUNT 6.39 10^6/uL (4.30-6.10); WHITE BLOOD COUNT 6.1 10^3/uL (4.0-10.0)
[2019-12-14 14:18] LABS: HEMOGLOBIN A1c 5.8 %
[2019-12-14 14:21] LABS: ALT/SGPT 23 U/L (12-78); BILIRUBIN,TOTAL 0.9 MG/DL (0.2-1.0); BLOOD UREA NITROGEN 13 MG/DL (7-18); CALCIUM LEVEL 9.1 MG/DL (8.5-10.1); CARBON DIOXIDE LEVEL 31 MEQ/L (21-32); CHLORIDE LEVEL 105 MEQ/L (98-107); CHOLESTEROL LEVEL 162 MG/DL (<200); CREATININE FOR GFR 1.09 MG/DL (0.70-1.30); GLOMERULAR FILTRATION RATE > 60.0 (>60); GLUCOSE, FASTING 88 MG/DL (70-100); SODIUM LEVEL 140 MEQ/L (136-145); TRIGLYCERIDES LEVEL 113 MG/DL (<150)
[2019-12-14 14:22] LABS: CHOLESTEROL RISK RATIO 3.767 (<5); HDL CHOLESTEROL 43 MG/DL (>40); LDL CHOLESTEROL 96 MG/DL (<100); NON-HDL-C 119 MG/DL; TOTAL PROTEIN 7.4 GM/DL (6.4-8.2)
== END ==
LOC: M SFHCPLAZ 10:16
PROVIDERS: ATTEND Nurse Practitioner Adult Health
DX: I10 Essential (primary) hypertension (principal); E78.2 Mixed hyperlipidemia; D75.1 Secondary polycythemia; Z13.29 Encounter for screening for other suspected endocrine disorder; Z13.1 Encounter for screening for diabetes mellitus

== ENCOUNTER 2020-02-15 14:43 | Emergency (ER) | payer OTHER ==
[~2020-02-15] VITALS: Ht 195.6 cm; Wt 147.3 kg
[~2020-02-15 14:43] MED LIST changes: -CLIN300C5; +CLIN300C6
[2020-02-15] MEDS ORDERED: ASPIRIN 81 MG CHEW TABLET PO ONE (15:00)
[2020-02-15] MEDS ORDERED: FUROSEMIDE 40MG/4ML VIAL (J1940) IV ONE (15:00)
[2020-02-15] MEDS ORDERED: lisinopriL 40 MG TAB PO ONE (15:00)
[2020-02-15 15:23] LABS: BASO % 0.5 % (0.0-1.0); EOS # 0.1 10^3/uL (0.0-0.5); EOS % 0.8 % (0.0-3.0); HEMATOCRIT 52.4 % (42.0-52.0); HEMOGLOBIN 16.6 g/dl (13.5-17.5); LYMPH # 1.8 10^3/uL (1.5-5.0); LYMPH % 27.5 % (24.0-44.0); MEAN CORPUSCULAR HEMOGLOBIN 26.4 pg (27.0-33.0); MEAN CORPUSCULAR HGB CONC 31.7 g/dl (32.0-36.5); MEAN CORPUSCULAR VOLUME 83.3 fl (80.0-96.0); MONO # 0.6 10^3/uL (0.0-0.8); MONO % 9.8 % (0.0-5.0); NEUTROPHILS # 3.9 10^3/uL (1.5-8.5); NEUTROPHILS % 61.1 % (36.0-66.0); PLATELET COUNT, AUTOMATED 201 10^3/uL (150-450); RED BLOOD COUNT 6.29 10^6/uL (4.30-6.10); WHITE BLOOD COUNT 6.4 10^3/uL (4.0-10.0)
--- NOTE | 2020-02-15 15:29 | REP ---
INDICATION: CHEST PAIN COMPARISON: 03/07/2019 TECHNIQUE: Portable AP view of the chest FINDINGS: The mediastinum and cardiac silhouette are stable and within normal limits for portable technique. The lung hernández are clear without acute consolidation, effusion, or pneumothorax. Skeletal structures are intact. IMPRESSION: No acute cardiopulmonary process appreciated. <Electronically signed by James Duenas > 02/15/20 [id number]
[2020-02-15 15:34] LABS: INR 0.92; PROTHROMBIN TIME 12.5 SECONDS (12.5-14.3)
[2020-02-15 15:54] LABS: BLOOD UREA NITROGEN 14 MG/DL (7-18); CREATININE FOR GFR 0.88 MG/DL (0.70-1.30); GLUCOSE, FASTING 100 MG/DL (70-100)
[2020-02-15 15:55] LABS: ALBUMIN 3.9 GM/DL (3.2-5.2); ALT/SGPT 24 U/L (12-78); BILIRUBIN,DIRECT 0.1 MG/DL (0.0-0.2); BILIRUBIN,TOTAL 0.7 MG/DL (0.2-1.0); CALCIUM LEVEL 8.8 MG/DL (8.5-10.1); CARBON DIOXIDE LEVEL 26 MEQ/L (21-32); CHLORIDE LEVEL 105 MEQ/L (98-107); CK-MB VALUE MASS < 1.0 NG/ML (<3.6); CPK CREATINE PHOSPHOKINASE 125 U/L (39-308); GLOMERULAR FILTRATION RATE > 60.0 (>60); LIPASE 115 U/L (73-393); NT-PRO BNP 13 PG/ML (<125); POTASSIUM SERUM 4.3 MEQ/L (3.5-5.1); SODIUM LEVEL 136 MEQ/L (136-145); TOTAL PROTEIN 7.8 GM/DL (6.4-8.2); TROPONIN I < 0.02 NG/ML (< 0.10)
[2020-02-15] MEDS ORDERED: AUGM875T28 PO (16:27)
[2020-02-15 16:52] VITALS: BP 156/90
--- NOTE | 2020-02-16 13:31 | ECGEPIP ---
[facility] - ED Test Date: 2020-02-15 Pat Name: JANAY HINES Department: Room: - Gender: Male Parking Analyst: PEREZ : 1970 Requested By: ROLY Angulo Order Number: [id number] Reading MD: Eliza Amaro Measurements Intervals [place] Rate: 79 P: 56 [place]: 165 QRS: -29 QRSD: 117 T: 88 QT: 408 QTc: 468 Interpretive Statements SINUS RHYTHM BORDERLINE LEFT AXIS DEVIATION MODERATE INTRAVENTRICULAR CONDUCTION DELAY NSTTW abnormalities DECREASED RATE 03/07/19 Electronically Signed on 02-16-2020 13:31:13 EST by Eliza Amaro
== END 2020-02-15 16:54 | disposition home or self-care (01) ==
LOC: M ED 14:43
DX: R07.89 Other chest pain (principal); I16.0 Hypertensive urgency; I10 Essential (primary) hypertension; Z79.82 Long term (current) use of aspirin; Z79.899 Other long term (current) drug therapy; Z88.1 Allergy status to other antibiotic agents

== ENCOUNTER → 2020-03-14 | Outpatient (REF) | payer OTHER ==
[~2020-03-14] MED LIST changes: +AUGM875T28 PO
== END ==
LOC: M PLALAB 16:55
PROVIDERS: ATTEND Urology
DX: Z12.5 Encounter for screening for malignant neoplasm of prostate (principal)

== ENCOUNTER → 2020-03-16 | Outpatient (CLI) | payer OTHER | LOC: M LABSMTC 14:07 | PROVIDERS: ATTEND Family Medicine | DX: Z20.822 Contact with and (suspected) exposure to COVID-19 (principal) | CPT/HCPCS: C9803; U0003 ==

== ENCOUNTER 2020-03-20 17:24 | Outpatient (CLI) | payer OTHER ==
[~2020-03-20] VITALS: Ht 195.6 cm; Wt 143.0 kg
[~2020-03-20 17:24] MED LIST changes: +ACETAMINOPHEN TAB 650MG DOSE (2X325MG) PO ONE; +ALBUTEROL 90 MCG/ACT 8GM HFA INHALER INH PRN; +ALBUTEROL SULFATE 2.5 MG/0.5 ML INH NEB SOLN INH PRN; +BAMLANIVIMAB 700 MG in NS 250 ML IV ONE; +EPINEPHrine INJ 1 MG/ML 1ML AMP IM PRN; +NS 1,000 ML IV SCH; +diphenhydrAMINE 25MG CAP PO ONE; +diphenhydrAMINE 50MG CAP PO ONE; +diphenhydrAMINE 50MG/ML VIAL (J1200) IV PRN; +methylPREDNISolone 125MG 2ML VIAL IV PRN; +methylPREDNISolone 40MG 1ML VIAL IV ONE
[2020-03-20 17:40] VITALS: BP 162/98
[2020-03-20 18:52] VITALS: BP 167/97
[2020-03-20 19:06] VITALS: BP 161/100
[2020-03-20 19:44] VITALS: BP 169/92
[2020-03-20 20:26] VITALS: BP 145/91
[2020-03-20 21:01] VITALS: BP 153/95
== END 2020-03-20 21:10 | disposition home or self-care (01) ==
LOC: M OPCLI4 17:24 → M 4MAIN 17:29 → M OPCLI4 21:10
PROVIDERS: ATTEND Family Medicine
DX: U07.1 COVID-19 (principal); Z88.2 Allergy status to sulfonamides; Z88.8 Allergy status to other drugs, medicaments and biological substances
CPT/HCPCS: 96375; J2920; M0239

== ENCOUNTER → 2020-03-27 | Outpatient (CLI) | payer OTHER ==
[~2020-03-27] MED LIST changes: -ACETAMINOPHEN TAB 650MG DOSE (2X325MG) PO ONE; -ALBUTEROL 90 MCG/ACT 8GM HFA INHALER INH PRN; -ALBUTEROL SULFATE 2.5 MG/0.5 ML INH NEB SOLN INH PRN; -BAMLANIVIMAB 700 MG in NS 250 ML IV ONE; -EPINEPHrine INJ 1 MG/ML 1ML AMP IM PRN; -NS 1,000 ML IV SCH; -diphenhydrAMINE 25MG CAP PO ONE; -diphenhydrAMINE 50MG CAP PO ONE; -diphenhydrAMINE 50MG/ML VIAL (J1200) IV PRN; -methylPREDNISolone 125MG 2ML VIAL IV PRN; -methylPREDNISolone 40MG 1ML VIAL IV ONE
[2020-03-27 14:32] LABS: ALT/SGPT 22 U/L (12-78); BILIRUBIN,TOTAL 0.6 MG/DL (0.2-1.0); BLOOD UREA NITROGEN 13 MG/DL (7-18); CALCIUM LEVEL 8.8 MG/DL (8.5-10.1); CARBON DIOXIDE LEVEL 31 MEQ/L (21-32); CHLORIDE LEVEL 105 MEQ/L (98-107); CREATININE FOR GFR 1.06 MG/DL (0.70-1.30); GLOMERULAR FILTRATION RATE > 60.0 (>56); GLUCOSE, FASTING 87 MG/DL (70-100); POTASSIUM SERUM 4.2 MEQ/L (3.5-5.1); SODIUM LEVEL 141 MEQ/L (136-145); TOTAL PROTEIN 7.3 GM/DL (6.4-8.2); URIC ACID 5.5 MG/DL (3.5-7.2)
[2020-03-27 15:31] LABS: BASO % 0.4 % (0.0-1.0); EOS # 0.1 10^3/uL (0.0-0.5); EOS % 0.7 % (0.0-3.0); HEMOGLOBIN 17.9 g/dl (13.5-17.5); LYMPH % 29.1 % (24.0-44.0); MEAN CORPUSCULAR HEMOGLOBIN 26.8 pg (27.0-33.0); MEAN CORPUSCULAR HGB CONC 31.4 g/dl (32.0-36.5); MEAN CORPUSCULAR VOLUME 85.3 fl (80.0-96.0); MONO # 0.6 10^3/uL (0.0-0.8); MONO % 9.3 % (0.0-5.0); NEUTROPHILS % 59.6 % (36.0-66.0); PLATELET COUNT, AUTOMATED 169 10^3/uL (150-450); RED BLOOD COUNT 6.68 10^6/uL (4.30-6.10); WHITE BLOOD COUNT 6.7 10^3/uL (4.0-10.0)
[2020-03-27 16:24] LABS: ERYTHROCYTE SEDIMENTATION RATE 5 mm/hr (0-20)
== END ==
LOC: M PLALAB 10:12
PROVIDERS: ATTEND Podiatrist Foot & Ankle Surgery
DX: L03.90 Cellulitis, unspecified (principal)

== ENCOUNTER → 2020-04-12 | Outpatient (CLI) | payer OTHER ==
[2020-04-12 12:49] LABS: BLOOD UREA NITROGEN 10 MG/DL (7-18); CARBON DIOXIDE LEVEL 31 MEQ/L (21-32); CHLORIDE LEVEL 105 MEQ/L (98-107); CREATININE FOR GFR 0.98 MG/DL (0.70-1.30); FREE T4 1.14 NG/DL (0.76-1.46); GLOMERULAR FILTRATION RATE > 60.0 (>56); GLUCOSE, FASTING 76 MG/DL (70-100); MAGNESIUM LEVEL 2.1 MG/DL (1.8-2.4); POTASSIUM SERUM 3.9 MEQ/L (3.5-5.1); SODIUM LEVEL 139 MEQ/L (136-145)
[2020-04-12 12:50] LABS: MALB URINE SIEMENS 24.8 MG/L; MAU/CREAT RATIO 20.3 MCG/MG (0.0-30.0)
== END ==
LOC: M LAB 10:54
PROVIDERS: ATTEND Internal Medicine Cardiovascular Disease
DX: I10 Essential (primary) hypertension (principal)

== ENCOUNTER → 2020-04-26 | Outpatient (CLI) | payer OTHER ==
--- NOTE | 2020-04-26 10:31 | REP ---
INDICATION: HTN. COMPARISON: 01/25/2010. TECHNIQUE: Real-time sonographic evaluation of the kidneys is performed. Duplex Doppler evaluation of renal arteries performed bilaterally. FINDINGS: Renal cortical echogenicity pattern is normal bilaterally and contours are smooth. There is no hydronephrosis bilaterally. There is a simple cyst in the upper pole the left kidney measuring 4 cm in diameter and a simple cyst in the mid to lower medial left kidney measuring 2.9 cm. The right kidney measures 14.3 x 6.8 x 7.4 cm. Left renal dimensions are 15.0 x 6.1 x 7.6 cm. The urinary bladder is unremarkable. Duplex Doppler evaluation of the renal arteries is limited due to bowel gas. The proximal renal arteries are not visualized bilaterally. Peak systolic velocity of the abdominal aorta at the level of the renal arteries is 43.7 centimeters/second. The peak systolic velocity of the distal main right renal artery is 93.3 centimeters/second. Renal to aortic ratio 2.1. Resistive indices right kidney range between 0.46 and 0.48. Acceleration times range between 0.039 and 0.053. The peak systolic velocity of the distal main left renal artery is 44.1 cm /sec, renal to aortic ratio 1.0. Resistive indices left kidney range between 0.50 and 0.52. Acceleration times range between 0.028 and 0.058. IMPRESSION: No hydronephrosis. Two left renal cysts noted. Limited duplex Doppler evaluation of renal arteries due to overlying bowel gas. No compelling direct or indirect evidence of significant renal artery stenosis bilaterally. <Electronically signed by Robin Noble > 04/26/20 [id number]
== END ==
LOC: M RAD 09:00
PROVIDERS: ATTEND Internal Medicine Cardiovascular Disease
DX: I10 Essential (primary) hypertension (principal)

== ENCOUNTER → 2020-05-01 | Outpatient (REF) | payer OTHER | LOC: M LAB REF 09:37 | PROVIDERS: ATTEND Internal Medicine Cardiovascular Disease | DX: I10 Essential (primary) hypertension (principal) ==

== ENCOUNTER → 2020-06-26 | Outpatient (REF) | payer OTHER | LOC: M LAB REF 12:45 | PROVIDERS: ATTEND Internal Medicine Gastroenterology | DX: R19.4 Change in bowel habit (principal); K52.9 Noninfective gastroenteritis and colitis, unspecified ==

== ENCOUNTER → 2020-08-17 | Outpatient (REF) | payer OTHER ==
[~2020-08-17] MED LIST changes: +OMEP40CA4 PO; -OMEP40CA97 PO; +VANC125C3 PO
== END ==
LOC: M SFHCPLAZ 09:50
PROVIDERS: ATTEND Nurse Practitioner Adult Health
DX: R19.7 Diarrhea, unspecified (principal); Z86.19 Personal history of other infectious and parasitic diseases

== ENCOUNTER → 2020-09-22 | Outpatient (CLI) | payer OTHER ==
[~2020-09-22] MED LIST changes: +BUSP10TA PO; +CARV25TA; +CHLO125TA PO; +HYDR12.55 PO; +IRBE300T7 PO; +LORA-674; +MELO15TA28; +NIFE60TA40; +OMEP-218; +SAXE1INJ; +TADA5TAB; +VANC125C10 PO
== END ==
LOC: M LABSMTC 09:15
PROVIDERS: ATTEND Anesthesiology
DX: Z01.812 Encounter for preprocedural laboratory examination (principal); Z20.822 Contact with and (suspected) exposure to COVID-19

== ENCOUNTER 2020-09-27 12:21 | Day surgery (SDC) | payer OTHER ==
[~2020-09-27] VITALS: Ht 195.6 cm; Wt 142.9 kg
[~2020-09-27 12:21] MED LIST changes: +LIDOCAINE 2% 100MG/5ML SDV (FOR ANES.) As Ordered ONE; +NS 1,000 ML IV ONE; +propofoL 200 MG/20 ML VIAL As Ordered ONE
[2020-09-27] MEDS ORDERED: fentaNYL 100 MCG/2 ML INJECTION (J3010) As Ordered ONE (14:03)
[2020-09-27] MEDS ORDERED: LABETALOL 100MG/20ML VIAL As Ordered ONE (14:14)
--- NOTE | 2020-09-27 14:18 | ROOR ---
Patient Name: Jack Copeland Procedure Date: 09/27/2020 2:06 PM Date of : 1970 Age: 50 Room: [facility] Gender: Male Note Status: Finalized Procedure: Upper GI endoscopy Indications: Suspected esophageal reflux Providers: Nakul Shaffer Jr, MD Referring MD: Ghada Ulloa NP Requesting Provider: Medicines: Propofol per Anesthesia Complications: No immediate complications. Procedure: Pre-Anesthesia Assessment: - Prior to the procedure, a History and Physical was performed, and patient medications and allergies were reviewed. The patient is competent. The risks and benefits of the procedure and the sedation options and risks were discussed with the patient. All questions were answered and informed consent was obtained. Patient identification and proposed procedure were verified by the physician and the nurse in the pre-procedure area and in the procedure room. Mental Status Examination: alert and oriented. Airway Examination: normal oropharyngeal airway and neck mobility. Respiratory Examination: clear to auscultation. CV Examination: normal. ASA Grade Assessment: II - A patient with mild systemic disease. After reviewing the risks and benefits, the patient was deemed in satisfactory condition to undergo the procedure. The anesthesia plan was to use moderate sedation / analgesia (conscious sedation). Immediately prior to administration of medications, the patient was re-assessed for adequacy to receive sedatives. The heart rate, respiratory rate, oxygen saturations, blood pressure, adequacy of pulmonary ventilation, and response to care were monitored throughout the procedure. The physical status of the patient was re-assessed after the procedure. The Endoscope was introduced through the mouth, and advanced to the second part of duodenum. The upper GI endoscopy was accomplished without difficulty. The patient tolerated the procedure well. Findings: The upper third of the esophagus, middle third of the esophagus and lower third of the esophagus were normal. Patchy mildly erythematous mucosa without bleeding was found in the gastric antrum. Biopsies were taken with a cold forceps for histology. The cardia, gastric fundus, gastric body and prepyloric region of the stomach were normal. The duodenal bulb, first portion of the duodenum and second portion of the duodenum were normal. Biopsies for histology were taken with a cold forceps for evaluation of celiac disease. Impression: - Normal upper third of esophagus, middle third of esophagus and lower third of esophagus. - Erythematous mucosa in the antrum. Biopsied. - Normal cardia, gastric fundus, gastric body and prepyloric region of the stomach. - Normal duodenal bulb, first portion of the duodenum and second portion of the duodenum. Biopsied. Recommendation: - Discharge patient to home (ambulatory). - Return to my office as previously scheduled. Procedure Code(s): --- Professional --- 13571, Esophagogastroduodenoscopy, flexible, transoral; with biopsy, single or multiple Diagnosis Code(s): --- Professional --- K31.89, Other diseases of stomach and duodenum CPT copyright 2019 [employer]. All rights reserved. The codes documented in this report are preliminary and upon teacher vocal review may be revised to meet current compliance requirements. Nakul Shaffer MD Nakul Shaffer Jr, MD 09/27/2020 2:18:17 PM Electronically signed by Nakul Shaffer Jr, MD Number of Addenda: 0 Note Initiated On: 09/27/2020 2:06 PM Estimated Blood Loss: Estimated blood loss: none.
[2020-09-27] MEDS ORDERED: CETACAINE SPRAY 5GM As Ordered ONE (14:25)
[2020-09-27] MEDS ORDERED: propofoL 200 MG/20 ML VIAL As Ordered ONE (14:29)
--- NOTE | 2020-09-27 14:33 | ROOR ---
Patient Name: Jack Copeland Procedure Date: 09/27/2020 2:08 PM Date of : 1970 Age: 50 Room: [facility] Gender: Male Note Status: Finalized Procedure: Colonoscopy Indications: Chronic diarrhea Providers: Nakul Shaffer Jr, MD Referring MD: Ghada Ulloa NP Requesting Provider: Medicines: Propofol per Anesthesia Complications: No immediate complications. Procedure: Pre-Anesthesia Assessment: - Prior to the procedure, a History and Physical was performed, and patient medications and allergies were reviewed. The patient is competent. The risks and benefits of the procedure and the sedation options and risks were discussed with the patient. All questions were answered and informed consent was obtained. Patient identification and proposed procedure were verified by the physician and the nurse in the pre-procedure area and in the procedure room. Mental Status Examination: alert and oriented. Airway Examination: normal oropharyngeal airway and neck mobility. Respiratory Examination: clear to auscultation. CV Examination: normal. ASA Grade Assessment: III - A patient with severe systemic disease. After reviewing the risks and benefits, the patient was deemed in satisfactory condition to undergo the procedure. The anesthesia plan was to use moderate sedation / analgesia (conscious sedation). Immediately prior to administration of medications, the patient was re-assessed for adequacy to receive sedatives. The heart rate, respiratory rate, oxygen saturations, blood pressure, adequacy of pulmonary ventilation, and response to care were monitored throughout the procedure. The physical status of the patient was re-assessed after the procedure. The Colonoscope was introduced through the anus and advanced to the cecum, identified by appendiceal orifice and ileocecal valve. The colonoscopy was performed without difficulty. The patient tolerated the procedure well. The quality of the bowel preparation was adequate. Findings: The rectum, sigmoid colon, descending colon, transverse colon, ascending colon, cecum, appendiceal orifice and ileocecal valve appeared normal. Biopsies for histology were taken with a cold forceps from the ascending colon, transverse colon, descending colon and sigmoid colon for evaluation of microscopic colitis. Impression: - The rectum, sigmoid colon, descending colon, transverse colon, ascending colon, cecum, appendiceal orifice and ileocecal valve are normal. Biopsied. Recommendation: - Discharge patient to home (ambulatory). - Repeat colonoscopy in 10 years for screening purposes. Procedure Code(s): --- Professional --- 50122, Colonoscopy, flexible; with biopsy, single or multiple Diagnosis Code(s): --- Professional --- K52.9, Noninfective gastroenteritis and colitis, unspecified CPT copyright 2019 [employer]. All rights reserved. The codes documented in this report are preliminary and upon maintenance shop clerk review may be revised to meet current compliance requirements. Nakul Shaffer MD Nakul Shaffer Jr, MD 09/27/2020 2:32:59 PM Electronically signed by Nakul Shaffer Jr, MD Number of Addenda: 0 Note Initiated On: 09/27/2020 2:08 PM Estimated Blood Loss: Estimated blood loss: none.
[2020-09-27 15:06] VITALS: BP 137/93
== END 2020-09-27 15:08 | disposition home or self-care (01) ==
LOC: M OPP 12:21
PROVIDERS: ATTEND Surgery
DX: K63.5 Polyp of colon (principal); K52.9 Noninfective gastroenteritis and colitis, unspecified; K31.89 Other diseases of stomach and duodenum; K21.9 Gastro-esophageal reflux disease without esophagitis; Z79.1 Long term (current) use of non-steroidal anti-inflammatories (NSAID); Z79.899 Other long term (current) drug therapy; Z88.1 Allergy status to other antibiotic agents; Z88.2 Allergy status to sulfonamides
CPT/HCPCS: 43239; 45380; 88305; J3010

== ENCOUNTER → 2020-11-13 | Outpatient (CLI) | payer OTHER ==
[~2020-11-13] MED LIST changes: -LIDOCAINE 2% 100MG/5ML SDV (FOR ANES.) As Ordered ONE; -NS 1,000 ML IV ONE; -propofoL 200 MG/20 ML VIAL As Ordered ONE
[2020-11-13 18:00] LABS: BASO % 0.5 % (0.0-1.0); EOS % 0.3 % (0.0-3.0); HEMATOCRIT 47.9 % (42.0-52.0); HEMOGLOBIN 14.9 g/dl (13.5-17.5); LYMPH # 1.6 10^3/uL (1.5-5.0); LYMPH % 21.1 % (24.0-44.0); MEAN CORPUSCULAR HEMOGLOBIN 25.6 pg (27.0-33.0); MEAN CORPUSCULAR HGB CONC 31.1 g/dl (32.0-36.5); MEAN CORPUSCULAR VOLUME 82.3 fl (80.0-96.0); MONO # 0.6 10^3/uL (0.0-0.8); MONO % 7.9 % (2.0-8.0); NEUTROPHILS # 5.4 10^3/uL (1.5-8.5); NEUTROPHILS % 69.9 % (36.0-66.0); PLATELET COUNT, AUTOMATED 196 10^3/uL (150-450); RED BLOOD COUNT 5.82 10^6/uL (4.30-6.10); WHITE BLOOD COUNT 7.6 10^3/uL (4.0-10.0)
[2020-11-13 18:19] LABS: BLOOD UREA NITROGEN 13 MG/DL (7-18); CREATININE FOR GFR 1.02 MG/DL (0.70-1.30); GLOMERULAR FILTRATION RATE > 60.0 (>56)
== END ==
LOC: M PLALAB 14:47
PROVIDERS: ATTEND Physician Assistant
DX: Z51.81 Encounter for therapeutic drug level monitoring (principal); Z79.899 Other long term (current) drug therapy

== ENCOUNTER → 2021-01-31 | Outpatient (CLI) | payer OTHER ==
[~2021-01-31] MED LIST changes: +CLIN-250; -CLIN300C6; -LISI10TA15 PO; +LISI10TA24 PO; +OMEP-173; -OMEP-218
== END ==
LOC: M PLALAB 09:10
PROVIDERS: ATTEND Urology
DX: Z12.5 Encounter for screening for malignant neoplasm of prostate (principal)

== ENCOUNTER → 2021-01-31 | Outpatient (CLI) | payer OTHER ==
[2021-01-31 13:31] LABS: HEMOGLOBIN 16.3 g/dl (13.5-17.5); MEAN CORPUSCULAR HEMOGLOBIN 25.4 pg (27.0-33.0); MEAN CORPUSCULAR HGB CONC 31.3 g/dl (32.0-36.5); MEAN CORPUSCULAR VOLUME 81.1 fl (80.0-96.0); PLATELET COUNT, AUTOMATED 197 10^3/uL (150-450); RED BLOOD COUNT 6.41 10^6/uL (4.30-6.10); WHITE BLOOD COUNT 6.3 10^3/uL (4.0-10.0)
[2021-01-31 14:09] LABS: ALT/SGPT 21 U/L (12-78); BILIRUBIN,TOTAL 0.7 MG/DL (0.2-1.0); BLOOD UREA NITROGEN 14 MG/DL (7-18); CALCIUM LEVEL 9.6 MG/DL (8.5-10.1); CARBON DIOXIDE LEVEL 30 MEQ/L (21-32); CHLORIDE LEVEL 103 MEQ/L (98-107); CREATININE FOR GFR 0.94 MG/DL (0.70-1.30); GLOMERULAR FILTRATION RATE > 60.0 (>56); GLUCOSE, FASTING 85 MG/DL (70-100); MAGNESIUM LEVEL 2.2 MG/DL (1.8-2.4); POTASSIUM SERUM 4.1 MEQ/L (3.5-5.1); SODIUM LEVEL 138 MEQ/L (136-145); TOTAL PROTEIN 7.4 GM/DL (6.4-8.2)
== END ==
LOC: M PLALAB 09:13
PROVIDERS: ATTEND Physician Assistant
DX: I10 Essential (primary) hypertension (principal)

== ENCOUNTER → 2021-05-01 | Outpatient (REF) | payer OTHER | LOC: M SFHCPLAZ 16:39 | PROVIDERS: ATTEND Nurse Practitioner Adult Health | DX: R35.0 Frequency of micturition (principal) ==

== ENCOUNTER → 2021-05-01 | Outpatient (CLI) | payer OTHER ==
[2021-05-01 18:07] LABS: HEMATOCRIT 52.8 % (42.0-52.0); HEMOGLOBIN 16.7 g/dl (13.5-17.5); MEAN CORPUSCULAR HGB CONC 31.6 g/dl (32.0-36.5); MEAN CORPUSCULAR VOLUME 82.2 fl (80.0-96.0); PLATELET COUNT, AUTOMATED 181 10^3/uL (150-450); RED BLOOD COUNT 6.42 10^6/uL (4.30-6.10); WHITE BLOOD COUNT 7.5 10^3/uL (4.0-10.0)
[2021-05-01 18:35] LABS: ALBUMIN 4.1 GM/DL (3.2-5.2); ALT/SGPT 21 U/L (12-78); BILIRUBIN,TOTAL 0.6 MG/DL (0.2-1.0); BLOOD UREA NITROGEN 16 MG/DL (7-18); CALCIUM LEVEL 9.1 MG/DL (8.5-10.1); CARBON DIOXIDE LEVEL 27 MEQ/L (21-32); CHLORIDE LEVEL 102 MEQ/L (98-107); CREATININE FOR GFR 0.88 MG/DL (0.70-1.30); GLOMERULAR FILTRATION RATE > 60.0 (>56); GLUCOSE, FASTING 79 MG/DL (70-100); POTASSIUM SERUM 3.9 MEQ/L (3.5-5.1); SODIUM LEVEL 138 MEQ/L (136-145); TOTAL PROTEIN 7.6 GM/DL (6.4-8.2)
[2021-05-01 19:22] LABS: HIV 1&2 SCREEN CENTAUR NEGATIVE (NEGATIVE)
[2021-05-01 20:34] LABS: HEMOGLOBIN A1c 5.6 %
== END ==
LOC: M PLALAB 15:44
PROVIDERS: ATTEND Nurse Practitioner Adult Health
DX: Z13.1 Encounter for screening for diabetes mellitus (principal); I10 Essential (primary) hypertension; R35.0 Frequency of micturition; Z11.4 Encounter for screening for human immunodeficiency virus [HIV]; Z20.9 Contact with and (suspected) exposure to unspecified communicable disease; R79.89 Other specified abnormal findings of blood chemistry

== ENCOUNTER → 2021-09-26 | Outpatient (CLI) | payer OTHER | LOC: M PLAIMG 15:09 | PROVIDERS: ATTEND Orthopaedic Surgery | DX: S46.011A Strain of muscle(s) and tendon(s) of the rotator cuff of right shoulder, initial encounter (principal); S43.431A Superior glenoid labrum lesion of right shoulder, initial encounter; M19.011 Primary osteoarthritis, right shoulder ==

== ENCOUNTER 2021-11-19 17:14 | Emergency (ER) | payer OTHER ==
[~2021-11-19] VITALS: Ht 195.6 cm; Wt 135.0 kg
[2021-11-19 17:16] VITALS: BP 139/99
[2021-11-19 19:03] LABS: BASO # 0.1 10^3/uL (0.0-0.2); BASO % 0.6 % (0.0-1.0); EOS # 0.1 10^3/uL (0.0-0.5); EOS % 0.5 % (0.0-3.0); HEMATOCRIT 51.4 % (42.0-52.0); HEMOGLOBIN 16.3 g/dl (13.5-17.5); LYMPH # 2.2 10^3/uL (1.5-5.0); LYMPH % 23.7 % (24.0-44.0); MEAN CORPUSCULAR HEMOGLOBIN 27.4 pg (27.0-33.0); MEAN CORPUSCULAR HGB CONC 31.7 g/dl (32.0-36.5); MEAN CORPUSCULAR VOLUME 86.4 fl (80.0-96.0); MONO # 0.8 10^3/uL (0.0-0.8); MONO % 8.1 % (2.0-8.0); NEUTROPHILS # 6.2 10^3/uL (1.5-8.5); NEUTROPHILS % 66.6 % (36.0-66.0); PLATELET COUNT, AUTOMATED 179 10^3/uL (150-450); RED BLOOD COUNT 5.95 10^6/uL (4.30-6.10); WHITE BLOOD COUNT 9.3 10^3/uL (4.0-10.0)
[2021-11-19 19:49] LABS: ALBUMIN 4.1 GM/DL (3.2-5.2); ALT/SGPT 29 U/L (12-78); BILIRUBIN,DIRECT 0.1 MG/DL (0.0-0.2); BILIRUBIN,TOTAL 0.6 MG/DL (0.2-1.0); BLOOD UREA NITROGEN 16 MG/DL (7-18); CALCIUM LEVEL 9.4 MG/DL (8.5-10.1); CARBON DIOXIDE LEVEL 29 MEQ/L (21-32); CHLORIDE LEVEL 101 MEQ/L (98-107); CREATININE FOR GFR 0.99 MG/DL (0.70-1.30); GLOMERULAR FILTRATION RATE > 60.0 (>56); GLUCOSE, FASTING 98 MG/DL (70-100); LIPASE 128 U/L (73-393); POTASSIUM SERUM 3.6 MEQ/L (3.5-5.1); SODIUM LEVEL 136 MEQ/L (136-145); TOTAL PROTEIN 7.8 GM/DL (6.4-8.2)
[2021-11-19 22:14] LABS: CK-MB VALUE MASS < 1.0 NG/ML (<3.6); CPK CREATINE PHOSPHOKINASE 133 U/L (39-308); MB/CK RELATIVE INDEX 0.75 (< OR =4)
[2021-11-19] MEDS ORDERED: LIDOCAINE 5% (LIDODERM) PATCH TD ONE (23:20)
[2021-11-19] MEDS: NS 1,000 ML IV SCH (23:20)
[2021-11-19] MEDS ORDERED: ACETAMINOPHEN 325 MG TAB PO ONE (23:20)
[2021-11-20] MEDS: NS 1,000 ML IV SCH (00:20)
[2021-11-20] MEDS ORDERED: LIDO5DIS41 TOP (01:25)
[2021-11-20] MEDS ORDERED: OXYCODONE/APAP 5MG/325MG(HOME DOSE PACK) PO ONE (01:25)
[2021-11-20] MEDS ORDERED: **NOTE PATIENT COMMENT** MISC XX ONE (09:00)
[2021-11-20] MEDS ORDERED: **NOTE PATIENT COMMENT** MISC XX SCH (21:00)
[2021-11-20] MEDS ORDERED: METH-1164 PO (23:35)
== END 2021-11-20 01:39 | disposition left against medical advice (07) ==
LOC: M ED 17:14
DX: M48.04 Spinal stenosis, thoracic region (principal); Z11.52 Encounter for screening for COVID-19; R79.1 Abnormal coagulation profile; R06.02 Shortness of breath; R10.9 Unspecified abdominal pain; R50.9 Fever, unspecified; Z53.9 Procedure and treatment not carried out, unspecified reason; I10 Essential (primary) hypertension; E78.5 Hyperlipidemia, unspecified; N40.0 Benign prostatic hyperplasia without lower urinary tract symptoms; Z87.442 Personal history of urinary calculi; K21.9 Gastro-esophageal reflux disease without esophagitis; G47.30 Sleep apnea, unspecified; M54.9 Dorsalgia, unspecified; F41.9 Anxiety disorder, unspecified; Z86.19 Personal history of other infectious and parasitic diseases; Z87.891 Personal history of nicotine dependence

== ENCOUNTER 2021-11-20 19:31 | Emergency (ER) | payer OTHER ==
[~2021-11-20] VITALS: Ht 195.6 cm; Wt 136.4 kg
[~2021-11-20 19:31] MED LIST changes: +LIDO5DIS41 TOP
[2021-11-20 22:03] LABS: BASO % 0.5 % (0.0-1.0); EOS # 0.1 10^3/uL (0.0-0.5); EOS % 0.7 % (0.0-3.0); HEMATOCRIT 50.8 % (42.0-52.0); HEMOGLOBIN 16.1 g/dl (13.5-17.5); LYMPH # 2.4 10^3/uL (1.5-5.0); LYMPH % 28.1 % (24.0-44.0); MEAN CORPUSCULAR HEMOGLOBIN 27.5 pg (27.0-33.0); MEAN CORPUSCULAR HGB CONC 31.7 g/dl (32.0-36.5); MEAN CORPUSCULAR VOLUME 86.7 fl (80.0-96.0); MONO # 0.8 10^3/uL (0.0-0.8); MONO % 9.7 % (2.0-8.0); NEUTROPHILS # 5.2 10^3/uL (1.5-8.5); NEUTROPHILS % 60.8 % (36.0-66.0); PLATELET COUNT, AUTOMATED 186 10^3/uL (150-450); RED BLOOD COUNT 5.86 10^6/uL (4.30-6.10); WHITE BLOOD COUNT 8.6 10^3/uL (4.0-10.0)
[2021-11-20] MEDS ORDERED: NS 1,000 ML IV ONE (22:20)
[2021-11-20] MEDS ORDERED: ISOVUE-370 76% 100ML VIAL As Ordered ONE (22:22)
[2021-11-20 22:54] LABS: ALBUMIN 3.9 GM/DL (3.2-5.2); ALT/SGPT 29 U/L (12-78); BILIRUBIN,DIRECT < 0.1 MG/DL (0.0-0.2); BILIRUBIN,TOTAL 0.6 MG/DL (0.2-1.0); BLOOD UREA NITROGEN 15 MG/DL (7-18); CALCIUM LEVEL 9.1 MG/DL (8.5-10.1); CARBON DIOXIDE LEVEL 31 MEQ/L (21-32); CHLORIDE LEVEL 102 MEQ/L (98-107); GLOMERULAR FILTRATION RATE > 60.0 (>56); GLUCOSE, FASTING 102 MG/DL (70-100); LIPASE 121 U/L (73-393); POTASSIUM SERUM 4.2 MEQ/L (3.5-5.1); SODIUM LEVEL 137 MEQ/L (136-145)
[2021-11-20] MEDS ORDERED: METH-1164 PO (23:35)
[2021-11-20 23:53] VITALS: BP 136/83
[2021-11-21] MEDS ORDERED: KETOROLAC 30 MG/ML 1ML VIAL IV ONE
== END 2021-11-20 23:54 | disposition home or self-care (01) ==
LOC: M ED 19:31
DX: M54.89 Other dorsalgia (principal); M62.830 Muscle spasm of back; Z79.899 Other long term (current) drug therapy; Z88.2 Allergy status to sulfonamides
CPT/HCPCS: 71275; 80048; 80076; 83690; 85025; 96361; 96374; 99283; J1885; Q9967

== ENCOUNTER 2022-05-21 11:55 | Day surgery (SDC) | payer OTHER ==
[~2022-05-21] VITALS: Ht 195.6 cm; Wt 140.2 kg
[~2022-05-21 11:55] MED LIST changes: +IBUP200C25 PO; -MELO15TA28; +MELO15TA28 PO; +METH-1164 PO; -OMEP-173; +OMEP-173 PO; -TADA5TAB; +TADA5TAB PO; +VALA500T5 PO
[2022-05-21] MEDS ORDERED: LR 1,000 ML IV SCH (12:00)
[2022-05-21] MEDS ORDERED: propofoL 500 MG/50 ML VIAL As Ordered ONE (12:44)
[2022-05-21] MEDS ORDERED: GLYCOPYRROLATE INJ 0.2 MG/ML 2 ML VIAL As Ordered ONE (12:44)
[2022-05-21] MEDS ORDERED: propofoL 200 MG/20 ML VIAL As Ordered ONE (12:45)
[2022-05-21] MEDS ORDERED: MIDAZOLAM INJ 2MG/2ML VIAL As Ordered ONE (12:45)
[2022-05-21] MEDS ORDERED: fentaNYL 100 MCG/2 ML INJECTION As Ordered ONE (12:45)
[2022-05-21] MEDS ORDERED: LIDOCAINE 2% 100MG/5ML SDV (FOR ANES.) As Ordered ONE (12:46)
[2022-05-21] MEDS ORDERED: ONDANSETRON 4MG 2ML VIAL As Ordered ONE (12:46)
[2022-05-21] MEDS ORDERED: KETOROLAC 60MG 2ML VIAL As Ordered ONE (12:47)
[2022-05-21] MEDS ORDERED: BUPIVACAINE HCL 0.5% 30ML VIAL As Ordered ONE (13:15)
[2022-05-21] MEDS ORDERED: LIDOCAINE 1% SDV 30ML VIAL As Ordered ONE (13:15)
[2022-05-21] MEDS ORDERED: ceFAZolin SOD 3 GM in IV 1 EA IV ONE (13:15)
[2022-05-21] MEDS ORDERED: ceFAZolin 1GM VIAL As Ordered ONE (13:37)
[2022-05-21] MEDS ORDERED: ceFAZolin 2 GM/D5W 50 ML IV BAG As Ordered ONE (13:38)
[2022-05-21] MEDS ORDERED: ACETAMINOPHEN 1000MG 100ML IV BAG As Ordered ONE (13:47)
[2022-05-21] MEDS ORDERED: ceFAZolin SOD 1 GM in D5W MINI-BAG PLUS 50 ML IV ONE (14:00)
[2022-05-21] MEDS ORDERED: ceFAZolin SOD 2 GM in IV 1 EA IV ONE (14:00)
[2022-05-21 15:47] VITALS: BP 172/102
== END 2022-05-21 16:00 | disposition home or self-care (01) ==
LOC: M SDC 11:55
PROVIDERS: ATTEND Podiatrist Foot & Ankle Surgery
DX: M20.42 Other hammer toe(s) (acquired), left foot (principal); I10 Essential (primary) hypertension; K21.9 Gastro-esophageal reflux disease without esophagitis; F41.9 Anxiety disorder, unspecified; G47.33 Obstructive sleep apnea (adult) (pediatric); N40.0 Benign prostatic hyperplasia without lower urinary tract symptoms; Z79.82 Long term (current) use of aspirin; Z79.899 Other long term (current) drug therapy
CPT/HCPCS: 28285; 88300; J0131; J0690; J1100; J1885; J2250; J2405; J3010; S0020

== ENCOUNTER → 2022-05-23 | Outpatient (CLI) | payer OTHER | LOC: M WUC 10:18 | PROVIDERS: ATTEND Urology | DX: R97.20 Elevated prostate specific antigen [PSA] (principal) ==

== ENCOUNTER 2022-06-07 09:56 | Emergency (ER) | payer OTHER ==
[~2022-06-07] VITALS: Ht 195.6 cm; Wt 143.4 kg
[2022-06-07] MEDS ORDERED: KETOROLAC 30 MG/ML 1ML VIAL IM ONE (12:25)
[2022-06-07 12:26] VITALS: BP 147/88
[2022-06-07] MEDS ORDERED: KETOROLAC TROMETHAMINE 10 MG TAB PO SCH (14:00)
== END 2022-06-07 12:34 | disposition home or self-care (01) ==
LOC: M ED 09:56
DX: G89.18 Other acute postprocedural pain (principal); Z98.890 Other specified postprocedural states; I10 Essential (primary) hypertension; N40.0 Benign prostatic hyperplasia without lower urinary tract symptoms; G47.30 Sleep apnea, unspecified; Z79.899 Other long term (current) drug therapy; Z88.2 Allergy status to sulfonamides
CPT/HCPCS: 73630; 96372; 99283; J1885

== ENCOUNTER 2022-06-30 16:31 | Observation (INO) | payer OTHER ==
[~2022-06-30] VITALS: Ht 195.6 cm; Wt 147.7 kg
[2022-06-30 18:51] LABS: BASO % 0.6 % (0.0-1.0); EOS # 0.1 10^3/uL (0.0-0.5); EOS % 0.7 % (0.0-3.0); HEMATOCRIT 42.6 % (42.0-52.0); HEMOGLOBIN 14.8 g/dl (13.5-17.5); LYMPH # 2.3 10^3/uL (1.5-5.0); LYMPH % 32.3 % (24.0-44.0); MEAN CORPUSCULAR HEMOGLOBIN 31.4 pg (27.0-33.0); MEAN CORPUSCULAR HGB CONC 34.7 g/dl (32.0-36.5); MEAN CORPUSCULAR VOLUME 90.4 fl (80.0-96.0); MONO # 0.7 10^3/uL (0.0-0.8); MONO % 9.5 % (2.0-8.0); NEUTROPHILS % 56.3 % (36.0-66.0); PLATELET COUNT, AUTOMATED 155 10^3/uL (150-450); RED BLOOD COUNT 4.71 10^6/uL (4.30-6.10)
[2022-06-30 19:13] LABS: INR 0.83; PROTHROMBIN TIME 11.6 SECONDS (12.5-14.5)
[2022-06-30 19:14] LABS: CK-MB VALUE MASS < 1.0 NG/ML (<3.6); ETHYL ALCOHOL (ETHANOL) < 0.003 % (0.000-0.010); PARTIAL THROMBOPLASTIN TIME 25.9 SECONDS (24.8-34.2)
[2022-06-30 19:16] LABS: ALBUMIN 3.7 G/DL (3.2-5.2); ALKALINE PHOSPHATASE 68 U/L (46-116); ALT/SGPT 23 U/L (7.0-40); AST/SGOT 26 U/L (<34); BILIRUBIN,TOTAL 0.5 MG/DL (0.3-1.2); BLOOD UREA NITROGEN 18 MG/DL (9-23); C REACTIVE PROTEIN QUANTITATIV < 0.40 MG/DL (<1.0); CARBON DIOXIDE LEVEL 25 MMOL/L (20-31); CHLORIDE LEVEL 105 MMOL/L (98-107); CREATININE FOR GFR 0.82 MG/DL (0.70-1.30); GLOMERULAR FILTRATION RATE > 60.0 (>56); GLUCOSE, FASTING 88 MG/DL (60-100); POTASSIUM SERUM 3.6 MMOL/L (3.5-5.1); SODIUM LEVEL 140 MMOL/L (136-145); TOTAL PROTEIN 6.7 G/DL (5.7-8.2)
[2022-06-30 19:17] LABS: CPK CREATINE PHOSPHOKINASE 55 U/L (46-171); MB/CK RELATIVE INDEX 1.81 (< OR =4)
[2022-06-30 19:19] LABS: RSV AMPLIFICATION NEGATIVE (NEGATIVE)
[2022-06-30 19:28] LABS: ERYTHROCYTE SEDIMENTATION RATE 14 mm/hr (0-20)
[2022-06-30 20:37] LABS: AMPHETAMINES LEVEL URINE NEGATIVE (NEGATIVE); BARBITURATES URINE NEGATIVE (NEGATIVE); BENZODIAZEPINES URINE NEGATIVE (NEGATIVE); CANNABINOIDS URINE NEGATIVE (NEGATIVE); COCAINE METABOLITE URINE NEGATIVE (NEGATIVE); METHADONE URINE NEGATIVE (NEGATIVE); OPIATES URINE NEGATIVE (NEGATIVE); PHENCYCLIDINE URINE NEGATIVE (NEGATIVE)
[2022-06-30 20:50] LABS: AMYLASE 60 U/L (30-118)
[2022-06-30] MEDS ORDERED: ISOVUE-370 76% 100ML VIAL As Ordered ONE (21:15)
[2022-06-30] MEDS ORDERED: MOM 30ML SUSPENSION UDC PO PRN (21:50)
[2022-06-30] MEDS ORDERED: ACETAMINOPHEN TAB 650MG DOSE (2X325MG) PO PRN (21:50)
[2022-06-30] MEDS ORDERED: OMEP1CAP73 PO (22:02)
[2022-06-30] MEDS ORDERED: ASPI-161 PO (22:02)
[2022-06-30] MEDS ORDERED: DOXY100C3 PO (22:02)
[2022-06-30] MEDS ORDERED: MELO15TA28 PO (22:02)
[2022-06-30] MEDS ORDERED: VALT1TAB PO (22:02)
[2022-06-30] MEDS ORDERED: CIAL5TAB PO (22:02)
[2022-06-30] MEDS ORDERED: IBUP-1720 PO (22:02)
[2022-06-30] MEDS ORDERED: MUPI2OI EXT (22:02)
[2022-06-30] MEDS ORDERED: HOME MED LIST COMPLETE! XX SCH (22:05)
[2022-07-01 00:15] VITALS: BP 171/91
[2022-07-01 00:25] VITALS: BP 174/102
[2022-07-01 01:40] VITALS: BP 176/110
[2022-07-01] MEDS ORDERED: amLODIPine 5 MG TAB PO ONE (03:00)
[2022-07-01 03:45] VITALS: BP 160/96
[2022-07-01] MEDS ORDERED: OMEPRAZOLE 20MG CAP PO PRN (03:55)
[2022-07-01] MEDS ORDERED: MELOXICAM (MOBIC) 7.5 MG TAB PO PRN (03:55)
[2022-07-01 05:43] LABS: HEMATOCRIT 40.5 % (42.0-52.0); HEMOGLOBIN 13.9 g/dl (13.5-17.5); MEAN CORPUSCULAR HEMOGLOBIN 31.2 pg (27.0-33.0); MEAN CORPUSCULAR HGB CONC 34.3 g/dl (32.0-36.5); PLATELET COUNT, AUTOMATED 147 10^3/uL (150-450); RED BLOOD COUNT 4.45 10^6/uL (4.30-6.10); WHITE BLOOD COUNT 6.7 10^3/uL (4.0-10.0)
[2022-07-01 06:17] LABS: ALBUMIN 3.4 G/DL (3.2-5.2); ALKALINE PHOSPHATASE 61 U/L (46-116); ALT/SGPT 35 U/L (7.0-40); AST/SGOT 25 U/L (<34); BILIRUBIN,TOTAL 0.5 MG/DL (0.3-1.2); BLOOD UREA NITROGEN 15 MG/DL (9-23); CALCIUM LEVEL 8.7 MG/DL (8.5-10.1); CARBON DIOXIDE LEVEL 28 MMOL/L (20-31); CHLORIDE LEVEL 105 MMOL/L (98-107); CREATININE FOR GFR 0.78 MG/DL (0.70-1.30); GLOMERULAR FILTRATION RATE > 60.0 (>56); GLUCOSE, FASTING 92 MG/DL (60-100); POTASSIUM SERUM 3.5 MMOL/L (3.5-5.1); SODIUM LEVEL 141 MMOL/L (136-145); TOTAL PROTEIN 6.2 G/DL (5.7-8.2)
[2022-07-01 08:00] VITALS: BP 148/98
[2022-07-01 08:35] VITALS: BP 160/96
[2022-07-01 08:48] LABS: CHOLESTEROL LEVEL 199 MG/DL (<200); CHOLESTEROL RISK RATIO 3.83 (<5); HDL CHOLESTEROL 51.9 MG/DL (>40); LDL CHOLESTEROL 114.7 MG/DL (<100); NON-HDL-C 147.1 MG/DL; TRIGLYCERIDES LEVEL 162 MG/DL (<150)
[2022-07-01] MEDS ORDERED: IRBESARTAN 150MG TAB PO SCH (09:00)
[2022-07-01] MEDS ORDERED: ENOXAPARIN 40MG/0.4ML SYRINGE (J1650 PER 10MG) SC SCH (09:00)
[2022-07-01] MEDS ORDERED: MUPIROCIN 2% OINT 22 GM TUBE EXT SCH (09:00)
[2022-07-01] MEDS ORDERED: valACYclovir HCL 500 MG TAB PO SCH (09:00)
[2022-07-01] MEDS ORDERED: ASPIRIN 81MG ENTERIC TABLET PO SCH (09:00)
[2022-07-01] MEDS ORDERED: CHLORTHALIDONE 25 MG TAB PO SCH (09:00)
[2022-07-01] MEDS ORDERED: AMLO1TAB24 PO (11:03)
[2022-07-01] MEDS ORDERED: ATOR1TAB21 PO (19:05)
== END 2022-07-01 14:26 | disposition home or self-care (01) ==
LOC: M ED 16:31 → M ED INP 16:32 → ENRESERV 23:24 → M MS4PR 07-01 00:15
PROVIDERS: ADMIT Internal Medicine; ATTEND Internal Medicine
DX: G45.9 Transient cerebral ischemic attack, unspecified (principal); I10 Essential (primary) hypertension; E78.5 Hyperlipidemia, unspecified; K21.9 Gastro-esophageal reflux disease without esophagitis; R51.9 Headache, unspecified; Z79.82 Long term (current) use of aspirin; Z79.899 Other long term (current) drug therapy; Z88.8 Allergy status to other drugs, medicaments and biological substances
CPT/HCPCS: 36415; 70450; 70491; 70544; 70547; 70551; 71045; 80047; 80053; 80061; 80307; 81001; 82077; 82150; 82550; 82553; 83036; 83605; 84484; 85025; 85027; 85610; 85652; 85730; 86140; 87040; 87631; 93005; 93041; 94760; 96372; 97161; 99285; J1650; Q9967

== ENCOUNTER → 2022-08-28 | Outpatient (CLI) | payer OTHER ==
[~2022-08-28] MED LIST changes: +AMLO1TAB24 PO; +ASPI-161 PO; +ATOR1TAB21 PO; +CIAL5TAB PO; +DOXY100C3 PO; +IBUP-1720 PO; +MUPI2OI EXT; -NIFE60TA40; +NIFE60TA96; +OMEP1CAP73 PO; +VALT1TAB PO
== END ==
LOC: M RAD 07:38
PROVIDERS: ATTEND Orthopaedic Surgery
DX: M25.511 Pain in right shoulder (principal)

== ENCOUNTER → 2022-09-23 | Outpatient (CLI) | payer OTHER ==
[2022-09-23 18:21] LABS: HEMOGLOBIN 15.1 g/dl (13.5-17.5); MEAN CORPUSCULAR HEMOGLOBIN 32.1 pg (27.0-33.0); MEAN CORPUSCULAR HGB CONC 35.1 g/dl (32.0-36.5); MEAN CORPUSCULAR VOLUME 91.3 fl (80.0-96.0); PLATELET COUNT, AUTOMATED 175 10^3/uL (150-450); RED BLOOD COUNT 4.71 10^6/uL (4.30-6.10); WHITE BLOOD COUNT 9.4 10^3/uL (4.0-10.0)
[2022-09-23 18:46] LABS: ALBUMIN 4.4 G/DL (3.2-5.2); ALKALINE PHOSPHATASE 73 U/L (46-116); ALT/SGPT 19 U/L (7.0-40); AST/SGOT < 8 U/L (<34); BILIRUBIN,TOTAL 0.8 MG/DL (0.3-1.2); BLOOD UREA NITROGEN 15 MG/DL (9-23); CALCIUM LEVEL 9.3 MG/DL (8.5-10.1); CARBON DIOXIDE LEVEL 28 MMOL/L (20-31); CHLORIDE LEVEL 101 MMOL/L (98-107); CHOLESTEROL LEVEL 213 MG/DL (<200); CHOLESTEROL RISK RATIO 3.69 (<5); CREATININE FOR GFR 0.76 MG/DL (0.70-1.30); FERRITIN 20.5 NG/ML (10.5-307.3); GLOMERULAR FILTRATION RATE > 60.0 (>56); GLUCOSE, FASTING 85 MG/DL (60-100); HDL CHOLESTEROL 57.7 MG/DL (>40); LDL CHOLESTEROL 120.7 MG/DL (<100); NON-HDL-C 155.3 MG/DL; POTASSIUM SERUM 3.5 MMOL/L (3.5-5.1); SODIUM LEVEL 139 MMOL/L (136-145); THYROID STIMULATING HORMONE 1.143 uIU/ML (0.55-4.78); TOTAL PROTEIN 7.4 G/DL (5.7-8.2); TRIGLYCERIDES LEVEL 173 MG/DL (<150)
== END ==
LOC: M PLALAB 14:53
PROVIDERS: ATTEND Nurse Practitioner Adult Health
DX: Z00.00 Encounter for general adult medical examination without abnormal findings (principal); I10 Essential (primary) hypertension; E78.2 Mixed hyperlipidemia; Z13.29 Encounter for screening for other suspected endocrine disorder

== ENCOUNTER → 2022-10-13 | Outpatient (CLI) | payer OTHER ==
[2022-10-13 17:27] LABS: BASO # 0.1 10^3/uL (0.0-0.2); BASO % 0.8 % (0.0-1.0); EOS # 0.1 10^3/uL (0.0-0.5); EOS % 0.8 % (0.0-3.0); HEMATOCRIT 43.5 % (42.0-52.0); HEMOGLOBIN 14.4 g/dl (13.5-17.5); LYMPH # 1.7 10^3/uL (1.5-5.0); LYMPH % 27.3 % (24.0-44.0); MEAN CORPUSCULAR HEMOGLOBIN 30.6 pg (27.0-33.0); MEAN CORPUSCULAR HGB CONC 33.1 g/dl (32.0-36.5); MEAN CORPUSCULAR VOLUME 92.4 fl (80.0-96.0); MONO # 0.6 10^3/uL (0.0-0.8); MONO % 9.3 % (2.0-8.0); NEUTROPHILS # 3.8 10^3/uL (1.5-8.5); NEUTROPHILS % 61.2 % (36.0-66.0); PLATELET COUNT, AUTOMATED 168 10^3/uL (150-450); RED BLOOD COUNT 4.71 10^6/uL (4.30-6.10); WHITE BLOOD COUNT 6.2 10^3/uL (4.0-10.0)
[2022-10-13 17:33] LABS: ALBUMIN 4.1 G/DL (3.2-5.2)
[2022-10-13 17:41] LABS: PERCENT SATURATION 25.2 % (19.7-50.0)
[2022-10-13 17:43] LABS: FERRITIN 24.7 NG/ML (10.5-307.3)
== END ==
LOC: M WUC 11:48
PROVIDERS: ATTEND Orthopaedic Surgery Adult Reconstructive Orthopaedic Surgery
DX: Z01.818 Encounter for other preprocedural examination (principal); M25.562 Pain in left knee; M17.12 Unilateral primary osteoarthritis, left knee

== ENCOUNTER → 2022-10-28 | Outpatient (CLI) | payer OTHER ==
[~2022-10-28] MED LIST changes: +LORA-1041; -LORA-674
[2022-10-28 13:47] LABS: BASO % 0.7 % (0.0-1.0); EOS # 0.1 10^3/uL (0.0-0.5); EOS % 0.8 % (0.0-3.0); HEMATOCRIT 44.9 % (42.0-52.0); HEMOGLOBIN 14.7 g/dl (13.5-17.5); LYMPH # 1.6 10^3/uL (1.5-5.0); LYMPH % 27.3 % (24.0-44.0); MEAN CORPUSCULAR HEMOGLOBIN 30.1 pg (27.0-33.0); MEAN CORPUSCULAR HGB CONC 32.7 g/dl (32.0-36.5); MEAN CORPUSCULAR VOLUME 91.8 fl (80.0-96.0); MONO # 0.7 10^3/uL (0.0-0.8); MONO % 10.9 % (2.0-8.0); NEUTROPHILS # 3.6 10^3/uL (1.5-8.5); NEUTROPHILS % 59.8 % (36.0-66.0); PLATELET COUNT, AUTOMATED 183 10^3/uL (150-450); RED BLOOD COUNT 4.89 10^6/uL (4.30-6.10); WHITE BLOOD COUNT 5.9 10^3/uL (4.0-10.0)
[2022-10-28 14:08] LABS: INR 0.94; PARTIAL THROMBOPLASTIN TIME 26.1 SECONDS (24.8-34.2); PROTHROMBIN TIME 12.3 SECONDS (12.5-14.5)
[2022-10-28 14:23] LABS: ALBUMIN 3.8 G/DL (3.2-5.2); ALKALINE PHOSPHATASE 63 U/L (46-116); ALT/SGPT 39 U/L (7.0-40); AST/SGOT 18 U/L (<34); BILIRUBIN,TOTAL 0.8 MG/DL (0.3-1.2); BLOOD UREA NITROGEN 15 MG/DL (9-23); CALCIUM LEVEL 9.5 MG/DL (8.5-10.1); CARBON DIOXIDE LEVEL 29 MMOL/L (20-31); CHLORIDE LEVEL 102 MMOL/L (98-107); CREATININE FOR GFR 0.83 MG/DL (0.70-1.30); GLOMERULAR FILTRATION RATE > 60.0 (>56); GLUCOSE, FASTING 76 MG/DL (60-100); MAGNESIUM LEVEL 1.7 MG/DL (1.8-2.4); POTASSIUM SERUM 3.9 MMOL/L (3.5-5.1); SODIUM LEVEL 137 MMOL/L (136-145)
[2022-10-28 19:23] LABS: APPEARANCE, URINE HAZY (CLEAR); BACTERIA, URINE AUTO NEGATIVE (NEGATIVE); BILIRUBIN, URINE AUTO NEGATIVE (NEGATIVE); BLOOD, URINE BLOOD NEGATIVE (NEGATIVE); COLOR, URINE AMBER (YELLOW); GLUCOSE, URINE (UA) AUTO NEGATIVE (NEGATIVE); KETONE, URINE AUTO NEGATIVE (NEGATIVE); LEUKOCYTE ESTERASE, URINE AUTO NEGATIVE (NEGATIVE); MUCUS, URINE SMALL (NEGATIVE); NITRITE, URINE AUTO NEGATIVE (NEGATIVE); PROTEIN, URINE AUTO NEGATIVE (NEGATIVE); RBC, URINE AUTO 0 /HPF (0-3); SPECIFIC GRAVITY URINE AUTO 1.021 (1.002-1.035); SQUAMOUS EPITHELIAL CELL UR AU 0 /HPF (0-6); UROBILINOGEN, URINE AUTO 0.2 mg/dL (0.0-2.0); WBC, URINE AUTO 0 /HPF (0-3)
== END ==
LOC: M PLALAB 11:19
PROVIDERS: ATTEND Family Medicine
DX: I10 Essential (primary) hypertension (principal); R73.01 Impaired fasting glucose

== ENCOUNTER → 2022-11-19 | Outpatient (CLI) | payer OTHER ==
[2022-11-19 16:05] LABS: BLOOD UREA NITROGEN 17 MG/DL (9-23); CALCIUM LEVEL 9.1 MG/DL (8.5-10.1); CARBON DIOXIDE LEVEL 32 MMOL/L (20-31); CHLORIDE LEVEL 106 MMOL/L (98-107); CHOLESTEROL LEVEL 201 MG/DL (<200); CHOLESTEROL RISK RATIO 4.22 (<5); CREATININE FOR GFR 0.77 MG/DL (0.70-1.30); GLOMERULAR FILTRATION RATE > 60.0 (>56); GLUCOSE, FASTING 89 MG/DL (60-100); HDL CHOLESTEROL 47.6 MG/DL (>40); LDL CHOLESTEROL 125.8 MG/DL (<100); NON-HDL-C 153.4 MG/DL; POTASSIUM SERUM 3.9 MMOL/L (3.5-5.1); SODIUM LEVEL 143 MMOL/L (136-145); TRIGLYCERIDES LEVEL 138 MG/DL (<150)
== END ==
LOC: M PLALAB 09:34
PROVIDERS: ATTEND Internal Medicine Cardiovascular Disease
DX: E78.2 Mixed hyperlipidemia (principal); I10 Essential (primary) hypertension

== ENCOUNTER → 2023-02-23 | Outpatient (CLI) | payer OTHER ==
[2023-02-23 11:51] LABS: HEMOGLOBIN A1c 5.3 % (4.0-6.0)
[2023-02-23 11:54] LABS: ALBUMIN 3.9 G/DL (3.2-5.2); ALKALINE PHOSPHATASE 73 U/L (46-116); ALT/SGPT 19 U/L (7.0-40); AST/SGOT 12 U/L (<34); BILIRUBIN,TOTAL 0.5 MG/DL (0.3-1.2); BLOOD UREA NITROGEN 21 MG/DL (9-23); CALCIUM LEVEL 9.2 MG/DL (8.5-10.1); CARBON DIOXIDE LEVEL 29 MMOL/L (20-31); CHLORIDE LEVEL 107 MMOL/L (98-107); CREATININE FOR GFR 0.78 MG/DL (0.70-1.30); GLOMERULAR FILTRATION RATE > 60.0 (>56); GLUCOSE, FASTING 96 MG/DL (60-100); POTASSIUM SERUM 3.9 MMOL/L (3.5-5.1); SODIUM LEVEL 143 MMOL/L (136-145); TOTAL PROTEIN 6.9 G/DL (5.7-8.2)
== END ==
LOC: M PLALAB 08:10
PROVIDERS: ATTEND Nurse Practitioner Adult Health
DX: I10 Essential (primary) hypertension (principal); R73.01 Impaired fasting glucose

== ENCOUNTER → 2023-08-27 | Outpatient (CLI) | payer OTHER ==
[~2023-08-27] MED LIST changes: -ASPI-161 PO; +ASPI-615 PO; -HYDR-3910; +HYDR25TA87; +IRBE300T25 PO; -IRBE300T7 PO; -VANC125C10 PO; +VANC125C12 PO
[2023-08-27 19:27] LABS: ALKALINE PHOSPHATASE 82 U/L (46-116); ALT/SGPT 23 U/L (7.0-40); AST/SGOT 13 U/L (<34); BILIRUBIN,TOTAL 0.4 MG/DL (0.3-1.2); BLOOD UREA NITROGEN 12 MG/DL (9-23); CALCIUM LEVEL 9.4 MG/DL (8.5-10.1); CARBON DIOXIDE LEVEL 30 MMOL/L (20-31); CHLORIDE LEVEL 103 MMOL/L (98-107); CREATININE FOR GFR 0.87 MG/DL (0.70-1.30); GLOMERULAR FILTRATION RATE > 60.0 (>56); GLUCOSE, FASTING 102 MG/DL (60-100); POTASSIUM SERUM 3.7 MMOL/L (3.5-5.1); SODIUM LEVEL 142 MMOL/L (136-145); TOTAL PROTEIN 7.1 G/DL (5.7-8.2)
== END ==
LOC: M PLALAB 16:28
PROVIDERS: ATTEND Nurse Practitioner Adult Health
DX: B37.2 Candidiasis of skin and nail (principal)

== ENCOUNTER → 2023-10-06 | Outpatient (CLI) | payer OTHER ==
[2023-10-06 13:00] LABS: HEMATOCRIT 44.6 % (42.0-52.0); HEMOGLOBIN 14.8 g/dl (13.5-17.5); MEAN CORPUSCULAR HEMOGLOBIN 29.4 pg (27.0-33.0); MEAN CORPUSCULAR HGB CONC 33.2 g/dl (32.0-36.5); MEAN CORPUSCULAR VOLUME 88.7 fl (80.0-96.0); PLATELET COUNT, AUTOMATED 180 10^3/uL (150-450); RED BLOOD COUNT 5.03 10^6/uL (4.30-6.10); WHITE BLOOD COUNT 6.6 10^3/uL (4.0-10.0)
[2023-10-06 13:48] LABS: ALBUMIN 3.9 G/DL (3.2-5.2); ALKALINE PHOSPHATASE 79 U/L (46-116); ALT/SGPT 47 U/L (7.0-40); AST/SGOT 24 U/L (<34); BILIRUBIN,TOTAL 0.5 MG/DL (0.3-1.2); BLOOD UREA NITROGEN 13 MG/DL (9-23); CALCIUM LEVEL 9.2 MG/DL (8.5-10.1); CARBON DIOXIDE LEVEL 32 MMOL/L (20-31); CHLORIDE LEVEL 106 MMOL/L (98-107); CHOLESTEROL LEVEL 227 MG/DL (<200); CHOLESTEROL RISK RATIO 5.63 (<5); CREATININE FOR GFR 0.75 MG/DL (0.70-1.30); FERRITIN 31.9 NG/ML (10.5-307.3); GLOMERULAR FILTRATION RATE > 60.0 (>56); GLUCOSE, FASTING 96 MG/DL (60-100); HDL CHOLESTEROL 40.3 MG/DL (>40); LDL CHOLESTEROL 145.7 MG/DL (<100); MAGNESIUM LEVEL 1.9 MG/DL (1.8-2.4); NON-HDL-C 186.7 MG/DL; POTASSIUM SERUM 3.7 MMOL/L (3.5-5.1); PSA SCREENING 0.82 NG/ML (< 4.00); SODIUM LEVEL 143 MMOL/L (136-145); TOTAL PROTEIN 7.3 G/DL (5.7-8.2); TRIGLYCERIDES LEVEL 205 MG/DL (<150)
[2023-10-06 14:15] LABS: HEMOGLOBIN A1c 5.3 % (4.0-6.0)
== END ==
LOC: M LAB 09:56 → M PLALAB 09:56
PROVIDERS: ATTEND Nurse Practitioner Adult Health
DX: Z00.00 Encounter for general adult medical examination without abnormal findings (principal); R73.01 Impaired fasting glucose; I10 Essential (primary) hypertension
CPT/HCPCS: 36415; 80053; 80061; 82728; 83036; 83735; 83880; 85027; G0103

== ENCOUNTER → 2023-11-04 | Outpatient (CLI) | payer OTHER ==
[2023-11-04 18:41] LABS: BASO % 0.3 % (0.0-1.0); EOS # 0.1 10^3/uL (0.0-0.5); EOS % 0.5 % (0.0-3.0); HEMATOCRIT 44.5 % (42.0-52.0); HEMOGLOBIN 14.6 g/dl (13.5-17.5); LYMPH # 2.8 10^3/uL (1.5-5.0); LYMPH % 27.5 % (24.0-44.0); MEAN CORPUSCULAR HEMOGLOBIN 29.9 pg (27.0-33.0); MEAN CORPUSCULAR HGB CONC 32.8 g/dl (32.0-36.5); MEAN CORPUSCULAR VOLUME 91.2 fl (80.0-96.0); MONO # 0.7 10^3/uL (0.0-0.8); MONO % 6.7 % (2.0-8.0); NEUTROPHILS # 6.7 10^3/uL (1.5-8.5); NEUTROPHILS % 64.3 % (36.0-66.0); PLATELET COUNT, AUTOMATED 187 10^3/uL (150-450); RED BLOOD COUNT 4.88 10^6/uL (4.30-6.10); WHITE BLOOD COUNT 10.3 10^3/uL (4.0-10.0)
[2023-11-04 19:05] LABS: ALBUMIN 3.8 G/DL (3.2-5.2)
[2023-11-04 19:13] LABS: PERCENT SATURATION 21.9 % (19.7-50.0)
[2023-11-04 19:14] LABS: FERRITIN 19.8 NG/ML (10.5-307.3)
== END ==
LOC: M PLALAB 15:09
PROVIDERS: ATTEND Orthopaedic Surgery Adult Reconstructive Orthopaedic Surgery
DX: Z01.818 Encounter for other preprocedural examination (principal); M25.561 Pain in right knee; M17.12 Unilateral primary osteoarthritis, left knee

== ENCOUNTER → 2024-03-14 | Outpatient (CLI) | payer OTHER ==
[~2024-03-14] MED LIST changes: -TADA5TAB PO; +TADA5TAB94 PO
[2024-03-14 13:56] LABS: BASO % 0.5 % (0.0-1.0); EOS # 0.1 10^3/uL (0.0-0.5); EOS % 0.6 % (0.0-3.0); HEMATOCRIT 48.4 % (42.0-52.0); LYMPH # 1.8 10^3/uL (1.5-5.0); LYMPH % 20.6 % (24.0-44.0); MEAN CORPUSCULAR HEMOGLOBIN 29.5 pg (27.0-33.0); MEAN CORPUSCULAR HGB CONC 33.1 g/dl (32.0-36.5); MEAN CORPUSCULAR VOLUME 89.3 fl (80.0-96.0); MONO # 0.7 10^3/uL (0.0-0.8); MONO % 7.9 % (2.0-8.0); NEUTROPHILS # 5.9 10^3/uL (1.5-8.5); NEUTROPHILS % 69.7 % (36.0-66.0); PLATELET COUNT, AUTOMATED 191 10^3/uL (150-450); RED BLOOD COUNT 5.42 10^6/uL (4.30-6.10); WHITE BLOOD COUNT 8.5 10^3/uL (4.0-10.0)
[2024-03-14 14:08] LABS: ALKALINE PHOSPHATASE 81 U/L (40-129); ALT/SGPT 17 U/L (7.0-40); AST/SGOT 11 U/L (<34); BILIRUBIN,TOTAL 0.5 MG/DL (0.3-1.2); BLOOD UREA NITROGEN 13 MG/DL (9-23); CALCIUM LEVEL 9.6 MG/DL (8.5-10.1); CARBON DIOXIDE LEVEL 34 MMOL/L (20-31); CHLORIDE LEVEL 98 MMOL/L (98-107); CHOLESTEROL LEVEL 218 MG/DL (<200); CHOLESTEROL RISK RATIO 3.85 (<5); CREATININE FOR GFR 0.76 MG/DL (0.70-1.30); GLOMERULAR FILTRATION RATE > 60.0 (>56); GLUCOSE, FASTING 91 MG/DL (60-100); HDL CHOLESTEROL 56.5 MG/DL (>40); LDL CHOLESTEROL 130.3 MG/DL (<100); MAGNESIUM LEVEL 1.8 MG/DL (1.8-2.4); NON-HDL-C 161.5 MG/DL; POTASSIUM SERUM 3.7 MMOL/L (3.5-5.1); SODIUM LEVEL 142 MMOL/L (136-145); TOTAL PROTEIN 7.6 G/DL (5.7-8.2); TRIGLYCERIDES LEVEL 156 MG/DL (<150)
[2024-03-14 16:00] LABS: HEMOGLOBIN A1c 5.4 % (4.0-6.0)
== END ==
LOC: M PLALAB 09:52
PROVIDERS: ATTEND Registered Nurse
DX: I11.9 Hypertensive heart disease without heart failure (principal); E78.2 Mixed hyperlipidemia; R06.02 Shortness of breath; E66.9 Obesity, unspecified

== ENCOUNTER → 2024-03-28 | Outpatient (CLI) | payer OTHER ==
[2024-03-28 12:01] LABS: ALBUMIN 3.8 G/DL (3.2-5.2); BLOOD UREA NITROGEN 18 MG/DL (9-23); CARBON DIOXIDE LEVEL 30 MMOL/L (20-31); CHLORIDE LEVEL 100 MMOL/L (98-107); CREATININE FOR GFR 0.77 MG/DL (0.70-1.30); GLOMERULAR FILTRATION RATE > 60.0 (>56); GLUCOSE, FASTING 89 MG/DL (60-100); PHOSPHORUS LEVEL 3.8 MG/DL (2.5-4.9); POTASSIUM SERUM 3.6 MMOL/L (3.5-5.1); SODIUM LEVEL 141 MMOL/L (136-145)
== END ==
LOC: M PLALAB 08:50
PROVIDERS: ATTEND Registered Nurse
DX: I11.9 Hypertensive heart disease without heart failure (principal)

== ENCOUNTER → 2024-03-28 | Outpatient (CLI) | payer OTHER ==
[2024-03-28 12:12] LABS: FREE T4 1.52 NG/DL (0.89-1.76); THYROID STIMULATING HORMONE 1.473 uIU/ML (0.55-4.78)
== END ==
LOC: M PLALAB 08:48
PROVIDERS: ATTEND Nurse Practitioner Adult Health
DX: R53.83 Other fatigue (principal)

== ENCOUNTER → 2024-06-06 | Outpatient (CLI) | payer OTHER ==
[~2024-06-06] MED LIST changes: +VANC125C13 PO; -VANC125C3 PO
== END ==
LOC: M RAD 08:56
PROVIDERS: ATTEND Nurse Practitioner Adult Health
DX: R91.8 Other nonspecific abnormal finding of lung field (principal)

== ENCOUNTER → 2024-09-13 | Outpatient (CLI) | payer OTHER ==
[~2024-09-13] MED LIST changes: +LIDO1ADH93 TOP; -LIDO5DIS41 TOP; +TADA5TAB2 PO; -TADA5TAB94 PO
== END ==
LOC: M RAD 11:47
PROVIDERS: ATTEND Nurse Practitioner Family
DX: R21 Rash and other nonspecific skin eruption (principal); R20.8 Other disturbances of skin sensation; R20.2 Paresthesia of skin

== ENCOUNTER → 2024-09-29 | Outpatient (CLI) | payer OTHER ==
[2024-10-05 00:57] LABS: ALPHA 2-MACROGLOBULINS,QN 144 mg/dL (106-279); ALT (SGPT) P5P 17 U/L (9-46); APOLIPOPROTEIN A-1 144 mg/dL (94-176); FIBROSIS SCORE 0.11; FIBROSIS STAGE NO FIBROSIS (F0); GGT 14 U/L (3-95); HAPTOGLOBIN 175 mg/dL (43-212); NECROINFLAM ACT GRADE NO ACTIVITY (A0); NECROINFLAM ACT SCORE 0.05
== END ==
LOC: M PLALAB 07:15
PROVIDERS: ATTEND Internal Medicine Gastroenterology
DX: K52.9 Noninfective gastroenteritis and colitis, unspecified (principal); K21.9 Gastro-esophageal reflux disease without esophagitis; K76.0 Fatty (change of) liver, not elsewhere classified; K62.5 Hemorrhage of anus and rectum; R10.32 Left lower quadrant pain; Z86.0100 Personal history of colon polyps, unspecified

== ENCOUNTER → 2024-10-03 | Outpatient (CLI) | payer OTHER ==
[2024-10-03 14:24] LABS: PLATELET COUNT, AUTOMATED 189 10^3/uL (150-450)
[2024-10-03 14:35] LABS: ALT/SGPT 21.0 U/L (7.0-40); AST/SGOT 17.0 U/L (<34)
[2024-10-03 14:36] LABS: TESTOSTERONE 274.0 NG/DL (241-827)
== END ==
LOC: M PLALAB 10:52
PROVIDERS: ATTEND Urology
DX: E29.1 Testicular hypofunction (principal)

== ENCOUNTER → 2024-11-02 | Outpatient (CLI) | payer OTHER ==
[2024-11-02 13:43] LABS: CALCIUM LEVEL 9.2 MG/DL (8.5-10.1); CARBON DIOXIDE LEVEL 31 MMOL/L (20-31); CHLORIDE LEVEL 99 MMOL/L (98-107); CHOLESTEROL LEVEL 217 MG/DL (<200); CHOLESTEROL RISK RATIO 4.23 (<5); CREATININE FOR GFR 0.76 MG/DL (0.70-1.30); GLOMERULAR FILTRATION RATE > 90.0 (>56); LDL CHOLESTEROL 138.7 MG/DL (<100); NON-HDL-C 165.7 MG/DL; PHOSPHORUS LEVEL 2.8 MG/DL (2.5-4.9); POTASSIUM SERUM 3.4 MMOL/L (3.5-5.1); SODIUM LEVEL 138 MMOL/L (136-145); TRIGLYCERIDES LEVEL 135 MG/DL (<150)
== END ==
LOC: M PLALAB 08:55
PROVIDERS: ATTEND Registered Nurse
DX: I11.9 Hypertensive heart disease without heart failure (principal); E78.2 Mixed hyperlipidemia

== ENCOUNTER → 2024-12-10 | Outpatient (REF) | payer OTHER | LOC: M LAB REF 19:10 | DX: J02.9 Acute pharyngitis, unspecified (principal) ==

== ENCOUNTER → 2024-12-14 | Outpatient (CLI) | payer OTHER | LOC: M CARPUL 10:21 | PROVIDERS: ATTEND Registered Nurse | DX: I77.810 Thoracic aortic ectasia (principal) ==

== ENCOUNTER → 2025-01-18 | Outpatient (CLI) | payer OTHER ==
[~2025-01-18] MED LIST changes: +SPIR-10 PO
[2025-01-18 11:18] LABS: CALCIUM LEVEL 9.0 MG/DL (8.5-10.1); CARBON DIOXIDE LEVEL 31 MMOL/L (20-31); CHLORIDE LEVEL 101 MMOL/L (98-107); CREATININE FOR GFR 0.81 MG/DL (0.70-1.30); GLOMERULAR FILTRATION RATE > 90.0 (>56); MAGNESIUM LEVEL 1.6 MG/DL (1.8-2.4); POTASSIUM SERUM 3.8 MMOL/L (3.5-5.1); SODIUM LEVEL 142 MMOL/L (136-145)
== END ==
LOC: M PLALAB 08:04
PROVIDERS: ATTEND Nurse Practitioner Family
DX: I11.9 Hypertensive heart disease without heart failure (principal)

== ENCOUNTER → 2025-01-18 | Outpatient (CLI) | payer OTHER ==
[2025-01-18 11:13] LABS: BASO # 0.1 10^3/uL (0.0-0.2); BASO % 0.8 % (0.0-1.0); EOS # 0.1 10^3/uL (0.0-0.5); EOS % 1.2 % (0.0-3.0); LYMPH # 1.4 10^3/uL (1.5-5.0); LYMPH % 23.5 % (24.0-44.0); MONO # 0.6 10^3/uL (0.0-0.8); MONO % 9.2 % (2.0-8.0); NEUTROPHILS # 3.9 10^3/uL (1.5-8.5); NEUTROPHILS % 64.8 % (36.0-66.0); PLATELET COUNT, AUTOMATED 189 10^3/uL (150-450)
[2025-01-18 11:19] LABS: ALT/SGPT 17 U/L (7.0-40); AST/SGOT 17 U/L (<34); CALCIUM LEVEL 9.4 MG/DL (8.5-10.1); CARBON DIOXIDE LEVEL 30 MMOL/L (20-31); CHLORIDE LEVEL 100 MMOL/L (98-107); CHOLESTEROL LEVEL 245 MG/DL (<200); CHOLESTEROL RISK RATIO 5.48 (<5); CREATININE FOR GFR 0.79 MG/DL (0.70-1.30); GLOMERULAR FILTRATION RATE > 90.0 (>56); LDL CHOLESTEROL 165.9 MG/DL (<100); NON-HDL-C 200.3 MG/DL; POTASSIUM SERUM 3.7 MMOL/L (3.5-5.1); SODIUM LEVEL 140 MMOL/L (136-145); TRIGLYCERIDES LEVEL 172 MG/DL (<150)
[2025-01-18 12:01] LABS: ESTIMATED AVERAGE GLUCOSE 114.0 MG/DL (60-110)
== END ==
LOC: M PLALAB 08:00
PROVIDERS: ATTEND Student in an Organized Health Care Education/Training Program
DX: Z00.00 Encounter for general adult medical examination without abnormal findings (principal); M54.6 Pain in thoracic spine; K76.0 Fatty (change of) liver, not elsewhere classified